=== PATIENT | female | born 1985 | race Caucasian/White ===

== ENCOUNTER 2016-06-29 06:57 | Observation (INO) | payer MEDICAID, OTHER ==
[2016-06-29] MEDS ORDERED: ONDANSETRON 4 MG/2 ML VIAL IVP ONE (07:25)
[2016-06-29] MEDS ORDERED: LORazepam 2 MG/ML INJ IVP ONE (07:26)
[2016-06-29] MEDS ORDERED: NS 1,000 ML IV ONE ×3 (07:26→10:25)
[2016-06-29 07:30] LABS: % IMMATURE GRANULYOCYTES 0.5 % (0.0-1.1); ABSOLUTE IMMATURE GRANULOCYTES 0.05 10^3/uL (0.00-0.10); ADD DIFF? NO; ADD MORPH? NO; ADD SCAN? NO; ATYPICAL LYMPHOCYTE FLAG 0 (0-99); FRAGMENT RBC FLAG 0 (0-99); HEMATOCRIT 44.8 % (38.0-47.0); HEMOGLOBIN 15.7 g/dL (12.6-16.3); LEFT SHIFT FLG 0 (0-99); LIPEMIA HEMOLYSIS FLAG 90 (0-99); MEAN CELL HEMOGLOBIN 31.4 pg (27.9-34.1); MEAN CELL VOLUME 89.6 fL (81.5-99.8); MEAN PLATELET VOLUME 11.5 fL (8.7-11.7); PLATELET CLUMPS FLAG 10 (0-99); PLATELET COUNT 179 10^3/uL (150-400); RED CELL DISTRIBUTION WIDTH 12.7 % (11.5-15.2)
[2016-06-29] MEDS ORDERED: PROMETHAZINE HCL 25 MG/ML INJ IVP ONE (07:35)
[2016-06-29] MEDS ORDERED: PROMETHAZINE HCL 25 MG/ML INJ ONE (07:36)
--- NOTE | 2016-06-29 07:41 | EDPHY ---
HPI/HX/ROS/PE/MDM Narrative: Chief complaint: Nausea vomiting and diarrhea HPI: 31-year-old female presenting complaining of 2 days of nausea vomiting and diarrhea. Patient believes that this set off by sinus infection. She has congestion in her sinuses and is having a lot of nasal discharge. This is causing her to feel nauseated and vomiting. She has a medical history of irritable bowel disease and anxiety. She often takes Zofran at home and is prescribed mirtazapine at night by her primary care physician for her sleep in her symptoms. Patient states that these have not been working for her. She has had multiple presentations to the emergency department for similar symptoms in the past. Denies any fevers or chills. No chest pain shortness of breath. Some crampy abdominal pain which is not unusual for her. She has a history of appendicitis in the past, status post appendectomy. She states that she has an allergy to amoxicillin and however paranoid all which causes her to feel very jittery. ROS: 10 point Review of Systems is negative except as noted in the HPI. Physical exam: Gen: Awake, Alert, No Distress HEENT: Nose: no rhinorrhea Eyes: PERRLA, EOMI Mouth: Dry mucosa Neck: Supple, no JVD Chest: nontender, lungs clear to auscultation Heart: S1, S2 normal, no murmur Abd: Soft, mild generalized tenderness, no focal findings,, no guarding, nonsurgical abdomen Back: no CVA tenderness, no midline tenderness Ext: no edema, non-tender Skin: no rash Neuro: CN II-XII intact, Sensation grossly intact, Strength 5/5 in bilateral upper and lower extremities ED Course: Patient is continuing to complain of nausea and dry retching after she has received 2 L of fluid, 4 mg of Zofran, 25 mg of Phenergan, 1 mg of Ativan, 2.5 mg of Haldol, 25 mg of Benadryl. She is ambulating to and from the bathroom without difficulty. She has not actually been seen to be vomiting here but has been dry retching. I have discussed with Dr. Muñoz, hospitalist. Will plan to admit to the to the [facility] for further hydration and care. - Data Points Laboratory Results: Laboratory Results 06/29/16 07:18 06/29/16 07:18 06/29/16 07:18 WBC 10.93 H 10^3/uL (3.80-9.50) RBC 5.00 10^6/uL (4.18-5.33) Hgb 15.7 g/dL (12.6-16.3) Hct 44.8 % (38.0-47.0) MCV 89.6 fL (81.5-99.8) MCH 31.4 pg (27.9-34.1) MCHC 35.0 g/dL (32.4-36.7) RDW 12.7 % (11.5-15.2) Plt Count 179 10^3/uL (150-400) MPV 11.5 fL (8.7-11.7) Neut % (Auto) 91.5 H % (39.3-74.2) Lymph % (Auto) 4.1 L % (15.0-45.0) [place] % (Auto) 3.6 L % (4.5-13.0) Eos % (Auto) 0.0 L % (0.6-7.6) Baso % (Auto) 0.3 % (0.3-1.7) Nucleat RBC Rel Count 0.0 % (0.0-0.2) Absolute Neuts (auto) 10.01 H 10^3/uL (1.70-6.50) Absolute Lymphs (auto) 0.45 L 10^3/uL (1.00-3.00) Absolute Monos (auto) 0.39 10^3/uL (0.30-0.80) Absolute Eos (auto) 0.00 L 10^3/uL (0.03-0.40) Absolute Basos (auto) 0.03 10^3/uL (0.02-0.10) Absolute Nucleated RBC 0.00 10^3/uL (0-0.01) Immature Gran % 0.5 % (0.0-1.1) Immature Gran # 0.05 10^3/uL (0.00-0.10) Sodium 139 mEq/L (134-144) Potassium 3.8 mEq/L (3.5-5.2) Chloride 107 mEq/L (97-110) Carbon Dioxide 16 L mEq/l (22-31) Anion Gap 16 mEq/L (8-16) BUN 7 mg/dL (7-23) Creatinine 0.8 mg/dL (0.6-1.0) Estimated GFR > 60 Glucose 178 H mg/dL (70-100) Calcium 9.7 mg/dL (8.5-10.4) Beta HCG, Qual NEGATIVE Medications Given: Discontinued Medications Diphenhydramine HCl (Benadryl Injection) 25 mg IVP EDNOW ONE Stop: 06/29/16 08:37 Last Admin: 06/29/16 08:42 Dose: 25 mg Haloperidol Lactate (Haldol Injection) 2.5 mg IVP EDNOW ONE Stop: 06/29/16 08:37 Last Admin: 06/29/16 08:42 Dose: 2.5 mg Sodium Chloride (Ns) 1,000 mls @ 0 mls/hr IV EDNOW ONE PRN Reason: Wide Open Stop: 06/29/16 07:27 Last Admin: 06/29/16 07:35 Dose: 1,000 mls Sodium Chloride (Ns) 1,000 mls @ 0 mls/hr IV EDNOW ONE PRN Reason: Wide Open Stop: 06/29/16 09:29 Last Admin: 06/29/16 09:30 Dose: 1,000 mls Sodium Chloride (Ns) 1,000 mls @ 0 mls/hr IV EDNOW ONE PRN Reason: Wide Open Stop: 06/29/16 10:26 Last Admin: 06/29/16 10:25 Dose: 1,000 mls Lorazepam (Ativan Injection) 1 mg IVP EDNOW ONE Stop: 06/29/16 07:27 Last Admin: 06/29/16 07:40 Dose: 1 mg Ondansetron HCl (Zofran) 4 mg IVP EDNOW ONE Stop: 06/29/16 07:26 Last Admin: 06/29/16 07:40 Dose: 4 mg Promethazine HCl (Phenergan Injection) 25 mg IVP EDNOW ONE Stop: 06/29/16 07:36 Last Admin: 06/29/16 07:40 Dose: 25 mg General Time Seen by Provider: 06/29/16 07:27 Initial Vital Signs: Initial Vital Signs Temperature (C) 36.3 C 06/29/16 07:04 Heart Rate 96 06/29/16 07:04 Respiratory Rate 16 06/29/16 07:04 Blood Pressure 112/91 H 06/29/16 07:04 O2 Sat (%) 98 06/29/16 07:04 O2 Delivery Mode Room Air Allergies/Adverse Reactions: amoxicillin Allergy (Verified 06/03/16 03:48) haloperidol [From Haldol] Allergy (Verified 06/03/16 03:48) haloperidol lactate [From Haldol] Allergy (Verified 06/03/16 03:48) Home Medications: Medication Instructions Recorded Diazepam [Valium 5 MG (*)] 5 mg PO BID PRN 05/09/16 Ibuprofen [Motrin (*)] 200 mg PO DAILY PRN 05/09/16 Acetaminophen [Tylenol 325mg (*)] 650 mg PO Q4HRS PRN #0 tab 05/12/16 Dicyclomine [Bentyl 20 MG (*)] 20 mg PO QID PRN #30 tab 05/12/16 Loperamide HCl [Imodium 2 mg (*)] 2 - 4 mg PO BID PRN #30 cap 05/12/16 Omeprazole Magnesium [Prilosec Otc] 20 mg PO DAILY #30 tablet. 05/12/16 Ondansetron [Zofran Odt] 8 mg PO Q4 PRN #40 tab.rapdis 05/12/16 Promethazine HCl [Phenergan 12.5mg 12.5 - 25 mg PO Q6 PRN #40 tablet 05/12/16 tab] Promethazine HCl [Phenergan 25mg 12.5 - 25 mg PO Q6HRS PRN #0 tab 05/12/16 (*)] Psyllium Seed (with Dextrose) 369 gm PO DAILY PRN #30 dose 05/12/16 [Fiber Powder] Promethazine HCl [Phenergan 25mg 25 mg PO Q8 #6 tab 06/03/16 (*)] Departure - Departure Disposition: [facility] Acute Clinical Impression: Vomiting and diarrhea Condition: Fair Referrals: Jackie Muro [Primary Care Provider] - As per Instructions
[2016-06-29 07:54] LABS: ANION GAP 16 mEq/L (8-16); CALCIUM 9.7 mg/dL (8.5-10.4); CARBON DIOXIDE 16 mEq/l (22-31); CHLORIDE 107 mEq/L (97-110); CREATININE 0.8 mg/dL (0.6-1.0); GLOMERULAR FILTRATION RATE > 60; GLUCOSE 178 mg/dL (70-100); POTASSIUM 3.8 mEq/L (3.5-5.2); SODIUM 139 mEq/L (134-144)
[2016-06-29] MEDS ORDERED: HALOPERIDOL LACT 5 MG/ML INJ IVP ONE (08:36)
[2016-06-29] MEDS ORDERED: ACETAMINOPHEN 500 MG TAB PO PRN (12:37)
[2016-06-29] MEDS ORDERED: PROMETHAZINE HCL 25 MG TAB PO PRN (12:37)
[2016-06-29] MEDS ORDERED: HYDROCODONE/APAP 5/325 TAB PO PRN (12:37)
[2016-06-29] MEDS ORDERED: ONDANSETRON 4 MG/2 ML VIAL IVP PRN (12:37)
[2016-06-29] MEDS: NS W/ 20 KCl/L 1,000 ML IV SCH (13:36)
[2016-06-29] MEDS: LORazepam 0.5 MG TAB PO PRN (13:53)
[2016-06-29] MEDS: PANTOPRAZOLE SODIUM 40 MG in NS 100 ML IV SCH (13:53)
[2016-06-29] MEDS ORDERED: MAGNESIUM SULF 2 GM/WATER 50 ML IV ONE ×2 (14:19→18:30)
--- NOTE | 2016-06-29 14:38 | PDGENHP ---
History and Physical - Chief Complaint NAUSEA/VOMITING/DIARRHEA - History of Present Illness 31-year-old female presenting complaining of 2 days of nausea vomiting and diarrhea. Patient believes that this set off by sinus infection. She has congestion in her sinuses and is having a lot of nasal discharge. This is causing her to feel nauseated and vomiting. She has a medical history of IBS and anxiety. She often takes Zofran at home and is prescribed mirtazapine at night by her primary care physician for her sleep in her symptoms. Patient states that these have not been working for her. Denies any fevers or chills. No chest pain shortness of breath. Some crampy abdominal pain which is not unusual for her. She has a history of appendicitis in the past, status post appendectomy. ED: she was given IVF and antiemetics. ROS: 10 point Review of Systems is negative except as noted in the HPI. PMHX: Anxiety, IBS, nausea, insomnia PSHx: appendectomy SocHx: + tobacco FmHx: unknown Meds/All: see med rec O: VSS Physical exam: Gen: Awake, Alert, No Distress HEENT: Nose: no rhinorrhea Eyes: PERRLA, EOMI Mouth: Dry mucosa Sinuses: TTP bilaterally along frontal sinuses. No maxillary involvement Neck: Supple, no JVD Chest: nontender, lungs clear to auscultation Heart: S1, S2 normal, no murmur Abd: Soft, mild generalized tenderness, no focal findings,, no guarding, nonsurgical abdomen Back: no CVA tenderness, no midline tenderness Ext: no edema, non-tender Skin: no rash Neuro: CN II-XII intact, Sensation grossly intact, Strength 5/5 in bilateral upper and lower extremities History Information - Allergies/Home Medication List Allergies/Adverse Reactions: amoxicillin Allergy (Unknown, Verified 06/29/16 11:25) Other-Enter Comments haloperidol [From Haldol] Allergy (Unknown, Verified 06/29/16 11:25) Other-Enter Comments haloperidol lactate [From Haldol] Allergy (Unknown, Verified 06/29/16 11:25) Other-Enter Comments Home Medications: Ibuprofen [Motrin (*)] 200 mg PO DAILY PRN 05/09/16 [Last Taken Unknown] Mirtazapine [Remeron soltab 15 mg (*)] 15 mg PO HS 06/29/16 [Last Taken 06/28/16 ] Naproxen Sodium [Aleve 220 MG (*)] 220 mg PO BID PRN 06/29/16 [Last Taken ] Ondansetron HCl [Zofran] 8 mg PO Q8 PRN 06/29/16 [Last Taken Unknown] Promethazine HCl [Phenergan 12.5mg tab] 12.5 - 25 mg PO Q6 PRN 06/29/16 [Last Taken Unknown] I have personally reviewed and updated: medical history, social history - Social History Smoking Status: Never smoked Physical Exam Temp Pulse Resp BP Pulse Ox 36.6 C 103 H 14 134/98 H 98 06/29/16 14:13 06/29/16 14:13 06/29/16 14:13 06/29/16 14:13 06/29/16 14:13 Lab Data & Imaging Review 06/29/16 07:18 06/29/16 07:18 WBC 10.93 10^3/uL (3.80-9.50) H 06/29/16 07:18 RBC 5.00 10^6/uL (4.18-5.33) 06/29/16 07:18 Hgb 15.7 g/dL (12.6-16.3) 06/29/16 07:18 Hct 44.8 % (38.0-47.0) 06/29/16 07:18 MCV 89.6 fL (81.5-99.8) 06/29/16 07:18 MCH 31.4 pg (27.9-34.1) 06/29/16 07:18 MCHC 35.0 g/dL (32.4-36.7) 06/29/16 07:18 RDW 12.7 % (11.5-15.2) 06/29/16 07:18 Plt Count 179 10^3/uL (150-400) 06/29/16 07:18 MPV 11.5 fL (8.7-11.7) 06/29/16 07:18 Neut % (Auto) 91.5 % (39.3-74.2) H 06/29/16 07:18 Lymph % (Auto) 4.1 % (15.0-45.0) L 06/29/16 07:18 [place] % (Auto) 3.6 % (4.5-13.0) L 06/29/16 07:18 Eos % (Auto) 0.0 % (0.6-7.6) L 06/29/16 07:18 Baso % (Auto) 0.3 % (0.3-1.7) 06/29/16 07:18 Nucleat RBC Rel Count 0.0 % (0.0-0.2) 06/29/16 07:18 Absolute Neuts (auto) 10.01 10^3/uL (1.70-6.50) H 06/29/16 07:18 Absolute Lymphs (auto) 0.45 10^3/uL (1.00-3.00) L 06/29/16 07:18 Absolute Monos (auto) 0.39 10^3/uL (0.30-0.80) 06/29/16 07:18 Absolute Eos (auto) 0.00 10^3/uL (0.03-0.40) L 06/29/16 07:18 Absolute Basos (auto) 0.03 10^3/uL (0.02-0.10) 06/29/16 07:18 Absolute Nucleated RBC 0.00 10^3/uL (0-0.01) 06/29/16 07:18 Immature Gran % 0.5 % (0.0-1.1) 06/29/16 07:18 Immature Gran # 0.05 10^3/uL (0.00-0.10) 06/29/16 07:18 Sodium 139 mEq/L (134-144) 06/29/16 07:18 Potassium 3.8 mEq/L (3.5-5.2) 06/29/16 07:18 Chloride 107 mEq/L (97-110) 06/29/16 07:18 Carbon Dioxide 16 mEq/l (22-31) L 06/29/16 07:18 Anion Gap 16 mEq/L (8-16) 06/29/16 07:18 BUN 7 mg/dL (7-23) 06/29/16 07:18 Creatinine 0.8 mg/dL (0.6-1.0) 06/29/16 07:18 Estimated GFR > 60 06/29/16 07:18 Glucose 178 mg/dL (70-100) H 06/29/16 07:18 Calcium 9.7 mg/dL (8.5-10.4) 06/29/16 07:18 Magnesium 1.5 mg/dL (1.6-2.3) L 06/29/16 07:18 Beta HCG, Qual NEGATIVE 06/29/16 07:18 Assessment & Plan Assessment: Vomiting and diarrhea (Acute) Plan: #N/V/D IN SETTING OF IBS AND CHRONIC NAUSEA #DEHYDRATION #SINUSITIS, LIKELY VIRAL. #HYPOMAGNESEMIA PLAN -OBSERVATION -IVF, ANTIEMETICS, PPI -CLD, ADAT -REPLACE MG -NO ABX FOR THE SINUSITIS AT THIS TIME -SCD'S -FULL CODE TOTAL CARE TIME IS 50 MINUTES
[2016-06-29] MEDS: ONDANSETRON DISINTEGRATING 4 MG TAB PO PRN ×2 (14:58→21:13)
[2016-06-29] MEDS ORDERED: MIRTAZAPINE 15 MG ODTAB PO SCH (21:00)
[2016-06-30] MEDS: LORazepam 0.5 MG TAB PO PRN (01:38)
[2016-06-30] MEDS ORDERED: guaiFENesin 600 MG TAB.ER PO PRN (04:02)
[2016-06-30] MEDS: NS W/ 20 KCl/L 1,000 ML IV SCH (04:10)
[2016-06-30 05:23] LABS: % IMMATURE GRANULYOCYTES 0.4 % (0.0-1.1); ABSOLUTE IMMATURE GRANULOCYTES 0.07 10^3/uL (0.00-0.10); ADD DIFF? NO; ADD MORPH? NO; ADD SCAN? NO; ATYPICAL LYMPHOCYTE FLAG 0 (0-99); FRAGMENT RBC FLAG 0 (0-99); HEMATOCRIT 39.8 % (38.0-47.0); HEMOGLOBIN 13.5 g/dL (12.6-16.3); LEFT SHIFT FLG 0 (0-99); LIPEMIA HEMOLYSIS FLAG 90 (0-99); MEAN CELL HEMOGLOBIN 31.5 pg (27.9-34.1); MEAN CELL HEMOGLOBIN CONCENTR. 33.9 g/dL (32.4-36.7); MEAN CELL VOLUME 92.8 fL (81.5-99.8); MEAN PLATELET VOLUME 11.8 fL (8.7-11.7); PLATELET CLUMPS FLAG 20 (0-99); PLATELET COUNT 165 10^3/uL (150-400); RED BLOOD CELL COUNT 4.29 10^6/uL (4.18-5.33); RED CELL DISTRIBUTION WIDTH 13.2 % (11.5-15.2)
[2016-06-30 05:47] LABS: ANION GAP 12 mEq/L (8-16); CALCIUM 8.8 mg/dL (8.5-10.4); CARBON DIOXIDE 19 mEq/l (22-31); CHLORIDE 110 mEq/L (97-110); CREATININE 0.7 mg/dL (0.6-1.0); GLOMERULAR FILTRATION RATE > 60; GLUCOSE 98 mg/dL (70-100); POTASSIUM 3.8 mEq/L (3.5-5.2); SODIUM 141 mEq/L (134-144)
[2016-06-30] MEDS ORDERED: guaiFENesin 600 MG TAB.ER PO SCH (09:00)
[2016-06-30] MEDS: PANTOPRAZOLE SODIUM 40 MG in NS 100 ML IV SCH (09:37)
[2016-06-30 11:04] VITALS: BP 127/87; PULSE 82; RESP 16; TEMP 97.9; O2SAT 99
--- NOTE | 2016-06-30 11:11 | PDDCSUM ---
Discharge Summary Discharge Summary: HPI/HOSPITAL COURSE 31 YO FEMALE ADMITTED FOR N/V/D/ABD PAIN. SHE HAS A HX OF IBS. SHE WAS FOUND TO BE DEHYDRATED. SHE WAS ADMITTED OVERNIGHT AND PROVIDED IVF, ANTIEMETICS, PPI. HAS DONE WELL. NOW FEELS MUCH BETTER AND IS ASKING FOR DISCHARGE. ALSO HAS A VIRAL SINUSITIS. HAS REMAINED AFEBRILE. FEELS BETTER FROM THIS PERSPECTIVE WELL. SHE DID HAVE MILD LEUKOCYTOSIS ON THE DAY OF DISCHARGE BUT GIVEN THAT SHE IS AFEBRILE, FEELS BETTER, AND SINUSES ARE NOT TENDER, WILL HOLD ANTIBIOTIC DDX: #N/V/D IN SETTING OF IBS AND CHRONIC NAUSEA #DEHYDRATION #SINUSITIS, LIKELY VIRAL. #HYPOMAGNESEMIA, REPLACED DX MEDS: SEE MED REC. NO NEW MEDS STARTED DX EXAM NAD AAOX3 RRR CTAB S/NT/ND NO EDEMA F/U: WILL F/U WITH PCP NEXT WEEK. IF SINUSITIS GETS WORSE OR IF SHE DEVELOP FEVERS, SHE WILL NEED TO F/U SOONER TOTAL CARE TIME IS 35 MINUTES SPENT ON DISCHARGE
== END 2016-06-30 12:52 | disposition home or self-care (01) ==
LOC: F3E 13:16
PROVIDERS: ADMIT Family Medicine; ATTEND Family Medicine
DX: E86.0 Dehydration (principal); R11.0 Nausea; K58.9 Irritable bowel syndrome, unspecified; J32.9 Chronic sinusitis, unspecified; E83.42 Hypomagnesemia; F41.9 Anxiety disorder, unspecified
CPT/HCPCS: 96361; 96374; 96375; 99285; G0378; J1200; J2405; J2550

== ENCOUNTER 2016-12-06 06:57 | Observation (INO) | payer OTHER ==
[2016-12-06] MEDS ORDERED: ONDANSETRON DISINTEGRATING 4 MG TAB ONE (07:14)
[2016-12-06] MEDS ORDERED: NS 1,000 ML IV ONE ×2 (07:29→09:30)
[2016-12-06] MEDS ORDERED: PROMETHAZINE HCL 25 MG/ML INJ IVP ONE ×2 (07:29→08:30)
--- NOTE | 2016-12-06 07:40 | EDPHY ---
H & P Stated Complaint: vomiting x 24 hours Time Seen by Provider: 12/06/16 07:05 HPI/ROS: CHIEF COMPLAINT: Vomiting and diarrhea HISTORY OF PRESENT ILLNESS: This is a 31-year-old female with several emergency department visits and hospitalizations for intractable vomiting. She presents today stating that she has been vomiting for the past 2 days. She has also had diarrhea. She denies fever. She has lower abdominal cramping that she thinks is related to her current menstrual period. She states that she has a history of both irritable bowel syndrome and inflammatory bowel syndrome, not confirmed by testing as best I can determine. She is not on any medications for either problem. She also has a history of anxiety and reports that she has had problems with benzodiazepine addiction. She is not currently taking any benzodiazepines. She thinks that this current bout of vomiting is related to sinus congestion and nasal drainage that she has been experiencing. She smokes marijuana daily; she tells me that she smokes a small quantity only. REVIEW OF SYSTEMS: A ten point review of systems was performed and is negative with the exception of the items mentioned in the HPI. - Personal History LMP (Females 10-55): Now Current Tetanus/Diphtheria Vaccine: Yes - Medical/Surgical History Hx Asthma: No Hx Chronic Respiratory Disease: No Hx Diabetes: No Hx Cardiac Disease: No Hx Renal Disease: No Hx Cirrhosis: No Hx Alcoholism: No Hx HIV/AIDS: No Hx Splenectomy or Spleen Trauma: No Other PMH: PSHx: appy. PMHx: anxiety, stomach ulcers, irritable bowel syndrome - Social History Smoking Status: Never smoked Drug Use: Marijuana Additional Social History: She is currently unemployed. She does not have a primary care physician. - Physical Exam Exam: General Appearance: Alert. Vital signs reviewed. Retching, hyperventilating. Blood pressure 134/85. Eyes: Pupils equal and round, no conjunctival injection, no discharge. Anicteric. ENT, Mouth: Mucous membranes are moist, no oropharyngeal erythema or edema. Neck: No lymphadenopathy, supple. Respiratory: Lungs are clear to auscultation; no wheezes, rales, or rhonchi. Respiratory rate mid 20s. Cardiovascular: Regular rate and rhythm; no murmur, rub, or gallop. Gastrointestinal: Abdomen is soft and nontender, no masses or organomegaly, bowel sounds normal. Skin: Warm and dry, no rashes on exposed skin, normal color. Back: Nontender to palpation over the thoracolumbar spine. No CVAT. Extremities: No lower extremity edema, no calf tenderness or swelling. Neurological: Alert and oriented. Moving all four extremities easily and equally. Psychiatric: Anxious affect. Constitutional: Initial Vital Signs Temperature (C) 36.7 C 12/06/16 07:18 Heart Rate 88 12/06/16 07:18 Respiratory Rate 26 H 12/06/16 07:18 Blood Pressure 134/85 H 12/06/16 07:18 O2 Sat (%) 99 12/06/16 07:18 O2 Delivery Mode Room Air Allergies/Adverse Reactions: amoxicillin Allergy (Unknown, Verified 12/06/16 07:11) Other-Enter Comments haloperidol [From Haldol] Allergy (Unknown, Verified 12/06/16 07:11) Other-Enter Comments haloperidol lactate [From Haldol] Allergy (Unknown, Verified 12/06/16 07:11) Other-Enter Comments Home Medications: Medication Instructions Recorded Ondansetron 12/06/16 Medical Decision Making ED Course/Re-evaluation: 31-year-old female with several visits for persistent vomiting. She has been admitted 4 times in the past for this problem. The Specter of cyclic vomiting has been raised but she does not feel that that is the etiology of her vomiting. She does smoke marijuana daily. In the past she has used benzodiazepines but has had a problem with addiction. She is not currently taking any benzodiazepines. She has been evaluated every 15 minutes during the 1st hour of her stay. She initially received normal saline IV, 12.5 mg IV Phenergan. She has continued with retching. She was given 1 mg of Ativan, for vomiting and anxiety. She has had persistent hyperventilation and has developed carpopedal spasm. She is being given benadryl 12.5 mg IV. She has had persistent retching and vomiting during her stay in the emergency department. Vomitus at 9:45 a.m. has some blood streaking. She will be given a dose Pepcid IV. Because of her intractable vomiting she is being admitted to observation at [facility]. Dr. Robles is the accepting physician. It is my impression that this is cyclic vomiting. Differential Diagnosis: Considered a differential diagnosis that includes but is not limited to gastroenteritis, gastritis, pancreatitis, cholecystitis, and cyclic vomiting. - Data Points Laboratory Results: Laboratory Results 12/06/16 07:30 12/06/16 07:30 12/06/16 12/06/16 12/06/16 07:30 07:30 07:30 WBC 9.14 10^3/uL 10^3/uL (3.80-9.50) RBC 4.87 10^6/uL 10^6/uL (4.18-5.33) Hgb 15.3 g/dL g/dL (12.6-16.3) Hct 43.4 % % (38.0-47.0) MCV 89.1 fL fL (81.5-99.8) MCH 31.4 pg pg (27.9-34.1) MCHC 35.3 g/dL g/dL (32.4-36.7) RDW 12.5 % % (11.5-15.2) Plt Count 280 10^3/uL 10^3/uL (150-400) MPV 12.2 fL H fL (8.7-11.7) Neut % (Auto) 58.3 % % (39.3-74.2) Lymph % (Auto) 32.2 % % (15.0-45.0) [place] % (Auto) 6.5 % % (4.5-13.0) Eos % (Auto) 1.9 % % (0.6-7.6) Baso % (Auto) 0.9 % % (0.3-1.7) Nucleat RBC Rel Count 0.0 % % (0.0-0.2) Absolute Neuts (auto) 5.34 10^3/uL 10^3/uL (1.70-6.50) Absolute Lymphs (auto) 2.94 10^3/uL 10^3/uL (1.00-3.00) Absolute Monos (auto) 0.59 10^3/uL 10^3/uL (0.30-0.80) Absolute Eos (auto) 0.17 10^3/uL 10^3/uL (0.03-0.40) Absolute Basos (auto) 0.08 10^3/uL 10^3/uL (0.02-0.10) Absolute Nucleated RBC 0.00 10^3/uL 10^3/uL (0-0.01) Immature Gran % 0.2 % % (0.0-1.1) Immature Gran # 0.02 10^3/uL 10^3/uL (0.00-0.10) Sodium 138 mEq/L mEq/L (134-144) Potassium 3.9 mEq/L mEq/L (3.5-5.2) Chloride 107 mEq/L mEq/L (97-110) Carbon Dioxide 16 mEq/l L mEq/l (22-31) Anion Gap 15 mEq/L mEq/L (8-16) BUN 13 mg/dL mg/dL (7-23) Creatinine 0.9 mg/dL mg/dL (0.6-1.0) Estimated GFR > 60 Glucose 158 mg/dL H mg/dL (70-100) Calcium 9.7 mg/dL mg/dL (8.5-10.4) Beta HCG, Qual NEGATIVE Medications Given: Discontinued Medications Diphenhydramine HCl (Benadryl Injection) 1,205 mg IVP EDNOW ONE Stop: 12/06/16 08:13 Last Admin: 12/06/16 08:45 Dose: Not Given Diphenhydramine HCl (Benadryl Injection) 12.5 mg IVP EDNOW ONE Stop: 12/06/16 08:31 Last Admin: 12/06/16 08:10 Dose: 12.5 mg Famotidine (Pepcid) 20 mg IVP EDNOW ONE Stop: 12/06/16 09:43 Last Admin: 12/06/16 09:48 Dose: 20 mg Sodium Chloride (Ns) 1,000 mls @ 0 mls/hr IV ONCE ONE; Wide Open PRN Reason: Protocol Stop: 12/06/16 07:30 Last Admin: 12/06/16 07:40 Dose: 1,000 mls Sodium Chloride (Ns) 1,000 mls @ 0 mls/hr IV ONCE ONE; Wide Open PRN Reason: Protocol Stop: 12/06/16 09:31 Last Admin: 12/06/16 09:20 Dose: 1,000 mls Lorazepam (Ativan Injection) 1 mg IVP EDNOW ONE Stop: 12/06/16 07:44 Last Admin: 12/06/16 08:00 Dose: 1 mg Promethazine HCl (Phenergan) 12.5 mg IVP EDNOW ONE Stop: 12/06/16 07:30 Last Admin: 12/06/16 07:40 Dose: 12.5 mg Promethazine HCl (Phenergan) 12.5 mg IVP ONCE ONE Stop: 12/06/16 08:31 Last Admin: 12/06/16 08:44 Dose: 12.5 mg Departure - Departure Disposition: [facility] Acute Clinical Impression: Vomiting Qualifiers: Vomiting type: cyclical vomiting Vomiting Intractability: intractable Nausea presence: with nausea Qualified Code(s): G43.A1 - Cyclical vomiting, intractable
[2016-12-06] MEDS ORDERED: LORazepam 2 MG/ML INJ IVP ONE (07:43)
[2016-12-06 08:20] LABS: % IMMATURE GRANULYOCYTES 0.2 % (0.0-1.1); ABSOLUTE IMMATURE GRANULOCYTES 0.02 10^3/uL (0.00-0.10); ADD DIFF? NO; ADD MORPH? NO; ADD SCAN? NO; ATYPICAL LYMPHOCYTE FLAG 30 (0-99); FRAGMENT RBC FLAG 0 (0-99); HEMATOCRIT 43.4 % (38.0-47.0); HEMOGLOBIN 15.3 g/dL (12.6-16.3); LEFT SHIFT FLG 0 (0-99); LIPEMIA HEMOLYSIS FLAG 90 (0-99); MEAN CELL HEMOGLOBIN 31.4 pg (27.9-34.1); MEAN CELL HEMOGLOBIN CONCENTR. 35.3 g/dL (32.4-36.7); MEAN CELL VOLUME 89.1 fL (81.5-99.8); MEAN PLATELET VOLUME 12.2 fL (8.7-11.7); PLATELET CLUMPS FLAG 0 (0-99); PLATELET COUNT 280 10^3/uL (150-400); RED BLOOD CELL COUNT 4.87 10^6/uL (4.18-5.33); RED CELL DISTRIBUTION WIDTH 12.5 % (11.5-15.2)
[2016-12-06 08:26] LABS: ANION GAP 15 mEq/L (8-16); CALCIUM 9.7 mg/dL (8.5-10.4); CARBON DIOXIDE 16 mEq/l (22-31); CHLORIDE 107 mEq/L (97-110); CREATININE 0.9 mg/dL (0.6-1.0); GLOMERULAR FILTRATION RATE > 60; GLUCOSE 158 mg/dL (70-100); POTASSIUM 3.9 mEq/L (3.5-5.2); SODIUM 138 mEq/L (134-144)
[2016-12-06] MEDS ORDERED: FAMOTIDINE 20 MG/2 ML SDV IVP ONE (09:42)
[2016-12-06] MEDS ORDERED: ACETAMINOPHEN 325 MG TAB PO PRN (12:24)
[2016-12-06] MEDS ORDERED: ONDANSETRON DISINTEGRATING 4 MG TAB PO PRN (12:24)
[2016-12-06] MEDS: ONDANSETRON 4 MG/2 ML VIAL IVP PRN ×2 (13:05→17:12)
[2016-12-06] MEDS: KETOROLAC 15 MG/1 ML SDV IVP SCH ×2 (13:06→18:31)
--- NOTE | 2016-12-06 14:47 | GHP ---
[f rep st] HISTORY AND PHYSICAL DATE OF ADMISSION: 12/06/2016 CHIEF COMPLAINT: Vomiting. HISTORY OF PRESENT ILLNESS: Ms Weiner is a 31-year-old female, well known to our service with multi ple admissions secondary to complaints of nausea and vomiting. She reports that this morning she st arted having severe vomiting and has not been able to keep any oral intake down for the past 2 days. She denies any fevers. She denies any chest pain, dyspnea or shortness of breath. She does state that she has mild abdominal cramping that she feels is related to her menstrual cycle. She feels t hat she also has a history of anxiety disorder and has had had problems with benzodiazepine addictio n in the past. She confirms that she smokes marijuana on a daily basis. She has no other physical complaints. REVIEW OF SYSTEMS: Comprehensive 10-point review of systems is negative other than noted in the HPI . PAST MEDICAL HISTORY: 1. Benzodiazepine addiction. 2. Cyclic vomiting. 3. Anxiety. PAST SURGICAL HISTORY: None. SOCIAL HISTORY: The patient is unemployed. She lives independently. She uses marijuana on a daily basis. She denies any alcohol or tobacco use. She denies any other illicit drugs at this time. PHYSICAL EXAM: GENERAL: The patient is alert. VITAL SIGNS: Afebrile at 36.7, pulse is 88, respir atory rate 26, blood pressure is 134/85, she is saturating 99% on room air. HEENT: Normocephalic, atraumatic. Mucosal membranes are moist. Pupils equal, round, reactive to light. NECK: Supple. RESPIRATORY: Lungs are clear to auscultation bilaterally. No rhonchi or wheezes noted. CARDIOVASC ULAR: Regular rate and rhythm. No gallop or murmur appreciated. GASTROINTESTINAL: Bowel sounds a re positive, soft and nontender. There is no guarding or rigidity noted. SKIN: Warm and dry with no rashes or lesions appreciated. EXTREMITIES: Within normal limits. There is no clubbing or cyan osis noted. NEUROLOGIC: Patient is focally intact. ALLERGIES: Amoxicillin, Haldol. HOME MEDICATIONS: None. FAMILY HISTORY: Reviewed and not pertinent. LABORATORY EVALUATION: Panel and CBC normal limits. ASSESSMENT AND PLAN: A 31-year-old female with multiple previous admissions secondary to cyclic vom iting. The patient will be admitted to the hospital under observation status. We will continue to provide IV hydration and supportive management. I have informed her that we will not provide her an y IV narcotics nor benzodiazepines as she does have a history of benzodiazepine abuse in the past. I have offered her Zofran as an antiemetic and IV fluid. I have also provided her with Toradol for her menstrual cramping. I have educated the patient that this is likely secondary to her consumptio n of THC; however, she is not interested in hearing this information at this time. She has been theresa luated in the past by Aline Elizondo. I have also suggested to the patient we will attempt to get a psy chiatry consult during this hospitalization for her underlying anxiety disorder. She has been infor med in the past and educated that she needs to obtain a primary care physician, as well as a psychia trist in the outpatient setting, of which she has not accomplished. We will continue supportive man agement. I anticipate the patient will be discharged in less than [address] Robles will assum e the patient's care on 12/07/2016. Further action will be taken as needed during the patient's hos pitalization. /[id number]/MODL
[2016-12-06] MEDS ORDERED: KETOROLAC 15 MG/1 ML SDV IVP SCH (18:00)
[2016-12-06] MEDS: NS 1,000 ML IV SCH (20:54)
[2016-12-06] MEDS ORDERED: PSEUDOEPHEDRINE HCL 30 MG TAB PO PRN (21:36)
[2016-12-07] MEDS: KETOROLAC 15 MG/1 ML SDV IVP SCH ×2 (00:15→05:06)
[2016-12-07] MEDS: NS 1,000 ML IV SCH (04:55)
[2016-12-07 05:18] VITALS: O2SAT 97
[2016-12-07 08:39] VITALS: BP 113/72; PULSE 75; RESP 18; TEMP 98.2
--- NOTE | 2016-12-07 12:20 | GDS ---
[f rep st] DISCHARGE SUMMARY DISCHARGE DIAGNOSIS: Include: 1. Recurrent cyclic nausea and vomiting. 2. Cannabis abuse. 3. Benzodiazepine addiction. 4. Anxiety. HISTORY OF PRESENT ILLNESS: A 31-year-old female with multiple hospitalizations recently for cyclic vomiting. For details of patient's initial presentation, please see the History and Physical dated 12/06/2016. CONSULTATIVE SERVICES: None. PROCEDURES: None. HOSPITAL COURSE: By issue: 1. Recurrent cyclic vomiting. Endorses symptoms consistent with possible irritable bowel syndrome. Has had extensive outpatient workup by Gastroenterology with no specific gastroenterologic patholo gy identified. The patient has been educated about the association between cannabis and cyclic vomi ting and based on my discussion refuses to accept the idea that this toxin may be contributing to he r recurrent presentations. Based on our discussions I do not believe the patient intends to stop ca nnabis use going forward, although it has been recommended by multiple providers. The patient is to lerating p.o. in the morning of disposition. She will be discharged home with her home dosing of Zo robert. 2. Benzodiazepine addiction. The patient was not provided benzodiazepines during this stay. 3. Anxiety. The patient was very tearful and anxious on my examination. I do believe she would be nefit from a long-term gastroenterology provider as well as a psychiatric provider. We discussed elian th of these. MEDICATIONS AT TIME OF DISPOSITION: No changes were made to her home list and includes Zofran only. FOLLOWUP APPOINTMENTS: It is recommended that the patient get established with an outpatient gastro enterologist for ongoing diagnostics and monitoring of her chronic nausea and vomiting. I spent greater than 30 minutes in the planning and coordination of this discharge. /[id number]/MODL
== END 2016-12-07 11:52 | disposition home or self-care (01) ==
LOC: CED 06:57 → CEDHOLD 09:52 → INTOOBSV 10:12 → OBSVTOIN 10:12 → F1N 11:11
PROVIDERS: ADMIT Hospitalist; ATTEND Hospitalist
PROC: 3E0337Z Introduction of Electrolytic and Water Balance Substance into Peripheral Vein, Percutaneous Approach (ICD-10-PCS; principal; 2016-12-06)
DX: G43.A0 Cyclical vomiting, in migraine, not intractable (principal); F12.10 Cannabis abuse, uncomplicated; F41.9 Anxiety disorder, unspecified; F13.21 Sedative, hypnotic or anxiolytic dependence, in remission; K58.9 Irritable bowel syndrome, unspecified
CPT/HCPCS: 96361; 96374; 96375; 96376; 99285; G0378; 80048-PO; 84703-PO; 85025-PO; J1200; J1885; J2060; J2405; J2550

== ENCOUNTER 2016-12-11 07:56 | Emergency (ER) | payer OTHER, MEDICAID ==
[2016-12-11 08:02] VITALS: PULSE 74; RESP 18; TEMP 98
[2016-12-11] MEDS ORDERED: ONDANSETRON 4 MG/2 ML VIAL IVP ONE ×2 (08:06→08:39)
[2016-12-11] MEDS ORDERED: NS 1,000 ML IV ONE ×2 (08:06→09:26)
[2016-12-11 08:25] LABS: % IMMATURE GRANULYOCYTES 0.3 % (0.0-1.1); ABSOLUTE IMMATURE GRANULOCYTES 0.02 10^3/uL (0.00-0.10); ADD DIFF? NO; ADD MORPH? NO; ADD SCAN? NO; ATYPICAL LYMPHOCYTE FLAG 20 (0-99); FRAGMENT RBC FLAG 0 (0-99); HEMATOCRIT 44.1 % (38.0-47.0); HEMOGLOBIN 15.7 g/dL (12.6-16.3); LEFT SHIFT FLG 0 (0-99); LIPEMIA HEMOLYSIS FLAG 90 (0-99); MEAN CELL HEMOGLOBIN 31.7 pg (27.9-34.1); MEAN CELL HEMOGLOBIN CONCENTR. 35.6 g/dL (32.4-36.7); MEAN CELL VOLUME 88.9 fL (81.5-99.8); MEAN PLATELET VOLUME 11.5 fL (8.7-11.7); PLATELET CLUMPS FLAG 0 (0-99); PLATELET COUNT 299 10^3/uL (150-400); RED BLOOD CELL COUNT 4.96 10^6/uL (4.18-5.33); RED CELL DISTRIBUTION WIDTH 12.5 % (11.5-15.2)
[2016-12-11 08:35] LABS: ALANINE AMINOTRANSFERASE 33 IU/L (9-52); ALBUMIN 4.3 g/dL (3.5-5.0); ALKALINE PHOSPHATASE 72 IU/L (38-126); ANION GAP 14 mEq/L (8-16); ASPARTATE AMINOTRANSFERASE 15 IU/L (14-46); BILIRUBIN,TOTAL 0.7 mg/dL (0.1-1.4); CALCIUM 9.6 mg/dL (8.5-10.4); CARBON DIOXIDE 19 mEq/l (22-31); CHLORIDE 106 mEq/L (97-110); CREATININE 0.8 mg/dL (0.6-1.0); GLOMERULAR FILTRATION RATE > 60; GLUCOSE 126 mg/dL (70-100); POTASSIUM 3.9 mEq/L (3.5-5.2); SODIUM 139 mEq/L (134-144); TOTAL PROTEIN 6.5 g/dL (6.3-8.2)
[2016-12-11] MEDS ORDERED: LORazepam 2 MG/ML INJ IVP ONE (08:38)
[2016-12-11 08:54] LABS: COLOR YELLOW; LEUKOCYTE ESTERASE,URINE TRACE (NEGATIVE); NITRITE,URINE NEGATIVE (NEGATIVE)
[2016-12-11 09:05] LABS: MUCUS TRACE /lpf (NONE-1+)
[2016-12-11] MEDS ORDERED: DIAZEPAM 10 MG/2 ML SYR IVP ONE (09:05)
[2016-12-11] MEDS ORDERED: HYOSCYAMINE SULFATE 0.125 MG TAB PO ONE (09:05)
[2016-12-11 09:06] LABS: AMORPHOUS 1+ /hpf (NONE-1+); BACTERIA TRACE /hpf (NONE SEEN)
[2016-12-11] MEDS ORDERED: METOCLOPRAMIDE 10 MG/2 ML VIAL IVP ONE ×2 (09:45→10:33)
[2016-12-11] MEDS ORDERED: KETOROLAC 30 MG/1 ML SDV IVP ONE (09:46)
--- NOTE | 2016-12-11 10:12 | EDPHY ---
H & P Stated Complaint: c/o vomiting Time Seen by Provider: 12/11/16 08:06 HPI/ROS: This patient complains of vomiting. She was discharged on December 07 from [facility] for cyclic vomiting syndrome and continues to use daily marijuana. She refused to accept the idea that her marijuana use may be contributing to her cyclic vomiting syndrome despite multiple practitioners counseling her regarding this. She reports that she felt better for a few days after admission and then had recurrence of vomiting last night. She has vomited several times since then with ongoing nausea is unable tolerate p.o. fluids. She has been taking oral Zofran for her nausea until she is no longer able to tolerate oral intake due to the vomiting. She reports associated generalized abdominal cramping that occurs after the vomiting. She states this is moderate to severe intensity. She reports having chronic anxiety as well and reports feeling anxious currently. ROS: No fevers or chills. No other constitutional symptoms HEENT: She reports recent URI symptoms consisting of coryza that is improving. Pulmonary: No significant coughing. She does have some dyspnea that seems to be a part of her anxiety. She reports no pleuritic pain. Cardiovascular: No chest pain. No heart palpitations GI: No hematemesis. No coffee-ground emesis. Normal bowel movements. There was no abdominal pain until after the vomiting started. : No urinary symptoms. Her last menstrual period was normal timing Integumentary: No rash or other complaints Musculoskeletal: After arrival she started complaining of generalized myalgias. Neuro: No focal numbness tingling weakness new: Psychiatric: Anxiety. She reports insomnia as well with only about 4 hours sleep tonight. She tried trazodone in the past without improvement. Complete review of symptoms is otherwise negative. Source: Patient Exam Limitations: No limitations - Personal History LMP (Females 10-55): 1-7 Days Ago Current Tetanus Diphtheria and Acellular Pertussis (TDAP): Yes - Medical/Surgical History Hx Asthma: No Hx Chronic Respiratory Disease: No Hx Diabetes: No Hx Cardiac Disease: No Hx Renal Disease: No Hx Cirrhosis: No Hx Alcoholism: No Hx HIV/AIDS: No Hx Splenectomy or Spleen Trauma: No Other PMH: PSHx: appy. PMHx: anxiety, stomach ulcers, irritable bowel syndrome - Social History Smoking Status: Never smoked Alcohol Use: None Drug Use: Marijuana (She admits once daily marijuana use for 10 years) Constitutional: Initial Vital Signs Temperature (C) 36.6 C 12/11/16 07:59 Heart Rate 74 12/11/16 07:59 Respiratory Rate 18 12/11/16 07:59 Blood Pressure 145/62 H 12/11/16 07:59 O2 Sat (%) 98 12/11/16 07:59 O2 Delivery Mode Nasal Cannula O2 (L/minute) 2 Allergies/Adverse Reactions: haloperidol [From Haldol] Allergy (Unknown, Verified 12/06/16 14:17) Other-Enter Comments haloperidol lactate [From Haldol] Allergy (Unknown, Verified 12/06/16 14:17) Other-Enter Comments Home Medications: Medication Instructions Recorded Ondansetron [Zofran Odt] 8 mg PO BID PRN 12/06/16 Medical Decision Making ED Course/Re-evaluation: A review of her labs reveals normal CBC, normal metabolic panel including LFTs negative lipase negative HCG IV normal saline bolus, Zofran total of 8 mg IV without relief Ativan 1 mg IV without relief Valium 5 mg without relief Benadryl 50 mg IV with 5 mg of Reglan Toradol 30 mg for muscle aches Patient has persistent vomiting despite these medications is given additional 5 mg of Reglan. Despite multiple rounds of medications the patient continues vomiting and requests admission. She requests [facility] for her admission. Discussion: Patient with history of cyclic vomiting syndrome with intractable vomiting warranting admission for further treatment. No evidence today of hepatitis, pancreatitis, metabolic disarray, or other complicating factors. I spoke to Dr. Segura, hospitalist at [facility] accepts the patient for admission for intractable vomiting - Data Points Laboratory Results: Laboratory Results 12/11/16 08:12 12/11/16 08:13 12/11/16 12/11/16 12/11/16 08:45 08:13 08:13 WBC RBC Hgb Hct MCV MCH MCHC RDW Plt Count MPV Neut % (Auto) Lymph % (Auto) [place] % (Auto) Eos % (Auto) Baso % (Auto) Nucleat RBC Rel Count Absolute Neuts (auto) Absolute Lymphs (auto) Absolute Monos (auto) Absolute Eos (auto) Absolute Basos (auto) Absolute Nucleated RBC Immature Gran % Immature Gran # Sodium 139 mEq/L mEq/L (134-144) Potassium 3.9 mEq/L mEq/L (3.5-5.2) Chloride 106 mEq/L mEq/L (97-110) Carbon Dioxide 19 mEq/l L mEq/l (22-31) Anion Gap 14 mEq/L mEq/L (8-16) BUN 5 mg/dL L mg/dL (7-23) Creatinine 0.8 mg/dL mg/dL (0.6-1.0) Estimated GFR > 60 Glucose 126 mg/dL H mg/dL (70-100) Calcium 9.6 mg/dL mg/dL (8.5-10.4) Total Bilirubin 0.7 mg/dL mg/dL (0.1-1.4) AST 15 IU/L IU/L (14-46) ALT 33 IU/L IU/L (9-52) Alkaline Phosphatase 72 IU/L IU/L (38-126) Total Protein 6.5 g/dL g/dL (6.3-8.2) Albumin 4.3 g/dL g/dL (3.5-5.0) Lipase 110.0 IU/L IU/L (23-300) Beta HCG, Qual NEGATIVE Urine Color YELLOW Urine Appearance HAZY Urine pH 7.0 (5.0-7.5) Ur Specific [place] 1.020 (1.002-1.030) Urine Protein NEGATIVE (NEGATIVE) Urine Ketones 1+ H (NEGATIVE) Urine Blood 2+ H (NEGATIVE) Urine Nitrate NEGATIVE (NEGATIVE) Urine Bilirubin NEGATIVE (NEGATIVE) Urine Urobilinogen 0.2 EU EU (0.2-1.0) Ur Leukocyte Esterase TRACE H (NEGATIVE) Urine RBC 1-3 /hpf /hpf (0-3) Urine WBC 10-15 /hpf H /hpf (0-3) Ur Epithelial Cells 3+ /lpf H /lpf (NONE-1+) Amorphous Sediment 1+ /hpf /hpf (NONE-1+) Urine Bacteria TRACE /hpf H /hpf (NONE SEEN) Urine Mucus TRACE /lpf /lpf (NONE-1+) Urine Glucose NEGATIVE (NEGATIVE) 12/11/16 08:12 WBC 7.62 10^3/uL 10^3/uL (3.80-9.50) RBC 4.96 10^6/uL 10^6/uL (4.18-5.33) Hgb 15.7 g/dL g/dL (12.6-16.3) Hct 44.1 % % (38.0-47.0) MCV 88.9 fL fL (81.5-99.8) MCH 31.7 pg pg (27.9-34.1) MCHC 35.6 g/dL g/dL (32.4-36.7) RDW 12.5 % % (11.5-15.2) Plt Count 299 10^3/uL 10^3/uL (150-400) MPV 11.5 fL fL (8.7-11.7) Neut % (Auto) 58.6 % % (39.3-74.2) Lymph % (Auto) 31.9 % % (15.0-45.0) [place] % (Auto) 5.1 % % (4.5-13.0) Eos % (Auto) 3.3 % % (0.6-7.6) Baso % (Auto) 0.8 % % (0.3-1.7) Nucleat RBC Rel Count 0.0 % % (0.0-0.2) Absolute Neuts (auto) 4.47 10^3/uL 10^3/uL (1.70-6.50) Absolute Lymphs (auto) 2.43 10^3/uL 10^3/uL (1.00-3.00) Absolute Monos (auto) 0.39 10^3/uL 10^3/uL (0.30-0.80) Absolute Eos (auto) 0.25 10^3/uL 10^3/uL (0.03-0.40) Absolute Basos (auto) 0.06 10^3/uL 10^3/uL (0.02-0.10) Absolute Nucleated RBC 0.00 10^3/uL 10^3/uL (0-0.01) Immature Gran % 0.3 % % (0.0-1.1) Immature Gran # 0.02 10^3/uL 10^3/uL (0.00-0.10) Sodium Potassium Chloride Carbon Dioxide Anion Gap BUN Creatinine Estimated GFR Glucose Calcium Total Bilirubin AST ALT Alkaline Phosphatase Total Protein Albumin Lipase Beta HCG, Qual Urine Color Urine Appearance Urine pH Ur Specific [place] Urine Protein Urine Ketones Urine Blood Urine Nitrate Urine Bilirubin Urine Urobilinogen Ur Leukocyte Esterase Urine RBC Urine WBC Ur Epithelial Cells Amorphous Sediment Urine Bacteria Urine Mucus Urine Glucose Medications Given: Discontinued Medications Diazepam (Valium Injection) 5 mg IVP EDNOW ONE Stop: 12/11/16 09:06 Last Admin: 12/11/16 09:14 Dose: 5 mg Diphenhydramine HCl (Benadryl Injection) 50 mg IVP EDNOW ONE Stop: 12/11/16 09:46 Last Admin: 12/11/16 10:01 Dose: 50 mg Hyoscyamine Sulfate (Levsin, Hyomax-Sl) 0.125 mg PO EDNOW ONE Stop: 12/11/16 09:06 Last Admin: 12/11/16 09:15 Dose: 0.125 mg Sodium Chloride (Ns) 1,000 mls @ 0 mls/hr IV ONCE ONE; Wide Open PRN Reason: Protocol Stop: 12/11/16 08:07 Last Admin: 12/11/16 08:23 Dose: 1,000 mls Sodium Chloride (Ns) 1,000 mls @ 0 mls/hr IV ONCE ONE PRN Reason: Wide Open Stop: 12/11/16 09:27 Last Admin: 12/11/16 09:27 Dose: 1,000 mls Ketorolac Tromethamine (Toradol) 30 mg IVP EDNOW ONE Stop: 12/11/16 09:47 Last Admin: 12/11/16 10:02 Dose: 30 mg Lorazepam (Ativan Injection) 1 mg IVP ONCE ONE Stop: 12/11/16 08:39 Last Admin: 12/11/16 08:51 Dose: 1 mg Metoclopramide HCl (Reglan Injection) 5 mg IVP EDNOW ONE Stop: 12/11/16 09:46 Last Admin: 12/11/16 10:02 Dose: 5 mg Metoclopramide HCl (Reglan Injection) 5 mg IVP EDNOW ONE Stop: 12/11/16 10:34 Last Admin: 12/11/16 10:39 Dose: 5 mg Ondansetron HCl (Zofran) 4 mg IVP EDNOW ONE Stop: 12/11/16 08:07 Last Admin: 12/11/16 08:20 Dose: 4 mg Ondansetron HCl (Zofran) 4 mg IVP EDNOW ONE Stop: 12/11/16 08:40 Last Admin: 12/11/16 08:54 Dose: 4 mg Departure - Departure Disposition: [facility] Clinical Impression: Intractable vomiting Qualifiers: Vomiting type: cyclical vomiting Nausea presence: with nausea Qualified Code(s) : G43.A1 - Cyclical vomiting, intractable Condition: Good
[2016-12-11 12:05] VITALS: BP 124/65; O2SAT 97
== END 2016-12-11 12:02 | disposition short-term general hospital (02) ==
LOC: CED 07:56
DX: G43.A1 Cyclical vomiting, in migraine, intractable (principal)
CPT/HCPCS: 80053-PO; 81003-PO; 81015-PO; 83690-PO; 84703-PO; 85025-PO; 96374; J1200; J1885; J2060; J2405; J2765

== ENCOUNTER 2016-12-23 06:51 | Observation (INO) | payer OTHER, MEDICAID ==
[2016-12-23] MEDS ORDERED: METOCLOPRAMIDE 10 MG/2 ML VIAL IVP ONE (07:08)
[2016-12-23] MEDS ORDERED: NS 1,000 ML IV ONE ×3 (07:08→10:29)
[2016-12-23] MEDS ORDERED: DIAZEPAM 10 MG/2 ML SYR IVP ONE ×2 (07:10→08:34)
[2016-12-23 07:18] LABS: % IMMATURE GRANULYOCYTES 0.4 % (0.0-1.1); ABSOLUTE IMMATURE GRANULOCYTES 0.05 10^3/uL (0.00-0.10); ADD DIFF? NO; ADD MORPH? NO; ADD SCAN? NO; ATYPICAL LYMPHOCYTE FLAG 0 (0-99); FRAGMENT RBC FLAG 0 (0-99); HEMATOCRIT 44.5 % (38.0-47.0); HEMOGLOBIN 15.8 g/dL (12.6-16.3); LEFT SHIFT FLG 0 (0-99); LIPEMIA HEMOLYSIS FLAG 90 (0-99); MEAN CELL HEMOGLOBIN 31.7 pg (27.9-34.1); MEAN CELL HEMOGLOBIN CONCENTR. 35.5 g/dL (32.4-36.7); MEAN CELL VOLUME 89.4 fL (81.5-99.8); MEAN PLATELET VOLUME 11.8 fL (8.7-11.7); PLATELET CLUMPS FLAG 20 (0-99); PLATELET COUNT 266 10^3/uL (150-400); RED BLOOD CELL COUNT 4.98 10^6/uL (4.18-5.33); RED CELL DISTRIBUTION WIDTH 12.2 % (11.5-15.2)
[2016-12-23 07:24] LABS: ANION GAP 19 mEq/L (8-16); CALCIUM 9.7 mg/dL (8.5-10.4); CARBON DIOXIDE 15 mEq/l (22-31); CHLORIDE 103 mEq/L (97-110); CREATININE 0.8 mg/dL (0.6-1.0); GLOMERULAR FILTRATION RATE > 60; GLUCOSE 159 mg/dL (70-100); POTASSIUM 3.6 mEq/L (3.5-5.2); SODIUM 137 mEq/L (134-144)
[2016-12-23] MEDS ORDERED: ONDANSETRON 4 MG/2 ML VIAL IVP ONE ×3 (08:15→11:41)
--- NOTE | 2016-12-23 08:16 | EDPHY ---
H & P Stated Complaint: c/o N/V x 3 days Time Seen by Provider: 12/23/16 07:02 HPI/ROS: This patient is known to our emergency department with history of cyclic vomiting syndrome with possible marijuana hyperemesis syndrome (10 years of daily MJ use) who presents with onset of vomiting last night at 10:00 p.m. after eating pizza. She tried oral Zofran with relief for period of time and was able to sleep from midnight till 4:00 a.m. when she awakened with recurrent vomiting that has persisted frequently until arrival this morning. She started developing tremulous hands in paresthesias this morning as well as hyperventilation the often accompany her episodes. Her last visit here was on December 11, 2016 I saw her for a similar episode of longer duration and despite multiple medications we had to admit her for intractable hyperemesis to [facility] per her request. She relates that she was simply treated with further medications and hydration while at [facility]. She has not followed up with a clinician since her admission. I reviewed the patient's discharge summary from [facility] on 12/11/2016 where she was treated with Compazine and Zofran for ongoing nausea and vomiting with some relief. She requested analgesics as well and was offered acetaminophen. She left AMA from [facility] on 12/12/2016. ROS: No fevers or chills. No other constitutional symptoms HEENT: No recent URI symptoms. Neuro: No headache. She has paresthesias in her hand and carpal spasms that started this morning. Pulmonary: No symptoms Cardiovascular: No lightheadedness. She does report chest pain that feels burning in nature that she attributes to acid reflux and vomiting. She states this is [id number] intensity. GI: No abdominal pain today. : No urinary symptoms. Her last menstrual period was normal timing 2 weeks ago. Integumentary: No complaints Endocrine: No polyuria or polydipsia. No other complaints Psychiatric: She gets anxious with these episodes. She denies any relief from shower hot bath for her vomiting symptoms she states that it actually "muro her skin" and makes her feel worse Completely symptoms otherwise negative.I reviewed the patient's discharge summary from her admission to [facility] on 12/11/2016 which she was treated with Compazine and Zofran for ongoing nausea and vomiting with some relief. She requested analgesics as well and was offered acetaminophen. She left AMA on 12/12/2016. Source: Patient Exam Limitations: No limitations - Personal History LMP (Females 10-55): 8-14 Days Ago - Medical/Surgical History PMH: Cyclic vomiting Marijuana abuse Hx Asthma: No Hx Chronic Respiratory Disease: No Hx Diabetes: No Hx Cardiac Disease: No Hx Renal Disease: No Hx Cirrhosis: No Hx Alcoholism: No Hx HIV/AIDS: No Hx Splenectomy or Spleen Trauma: No Other PMH: PSHx: appy. PMHx: anxiety, stomach ulcers, irritable bowel syndrome. with 1 tab - Family History Significant Family History: Other (Her father of acute pancreatitis is a complication of alcohol abuse) - Social History Smoking Status: Never smoked Alcohol Use: None Drug Use: Marijuana (Daily for more than 10 years) - Physical Exam Exam: Vital signs normal exception of mild hypertension at 140/100 initially. General Appearance: Anxious. Eyes: Pupils equal and round no pallor or injection. ENT, Mouth: Mucous membranes dry. Respiratory: There are no retractions, lungs are clear to auscultation. Hyperventilating Cardiovascular: Regular rate and rhythm. Gastrointestinal: Hypoactive bowel sounds. Soft with no tenderness in upper abdomen or organomegaly. She does have mild suprapubic tenderness with no guarding or rebound. No right lower quadrant or left lower quadrant tenderness Neurological: GCS 15 with no focal deficits. Tremors that seems voluntary with some intermittent carpal spasms. Skin: Warm and dry, no rashes. Musculoskeletal: Neck is supple nontender. Extremities are symmetrical, full range of motion. Psychiatric: Anxious. Otherwise normal DIFFERENTIAL DIAGNOSIS: After history and physical exam differential diagnosis was considered for episode of cyclic vomiting with dehydration, pancreatitis, metabolic disarray, Constitutional: Initial Vital Signs Temperature (C) 36.6 C 12/23/16 06:57 Heart Rate 78 12/23/16 06:57 Respiratory Rate 18 12/23/16 06:57 Blood Pressure 140/100 H 12/23/16 06:57 O2 Sat (%) 97 12/23/16 06:57 O2 Delivery Mode Room Air O2 (L/minute) 15 Allergies/Adverse Reactions: haloperidol [From Haldol] Allergy (Unknown, Verified 12/06/16 14:17) Other-Enter Comments haloperidol lactate [From Haldol] Allergy (Unknown, Verified 12/06/16 14:17) Other-Enter Comments Home Medications: Medication Instructions Recorded Ondansetron [Zofran Odt] 8 mg PO BID PRN 12/06/16 Medical Decision Making ED Course/Re-evaluation: IV normal saline bolus Valium 5 mg IV, Benadryl 50 mg IV, Reglan 10 mg IV 2nd L normal saline bolus Zofran 4 mg IV Levsin sublingual Patient continues with symptoms of dry heaves intermittently Imitrex 6 mg subcu and Toradol 30 mg IV I placed an oxygen mask on the patient's face explaining about hyperventilation and rebreathing carbon dioxide being beneficial. We took the strap off this mask so that she could simply hold it to her face and remove it when she had to vomit. We had an insignificant amount of oxygen flowing to the mask. Initially the patient refused this but over time she was found holding the mask to her face (it's difficult to horse show judge how much this helped). The patient had a very dramatic expression of pain anxiety from the subcu Imitrex injection of was given to the left posterior upper arm per cleaning that she "felt like her arm was going to fall off" she was reassured that the pain should pass & treated with ice to the area and a Band-Aid. On recheck after the subcu Imitrex-10 minutes later the patient reports that she feels she is getting worse and requests admission to the hospital. She cites the feeling of worsening anxiety asks for more medication for anxiety. I explained that we need to give time for the Imitrex to see if it will be effective in helping with her symptoms. 3rd L normal saline started A review of her labs initial revealed a significantly low bicarb of 15. I added on LFTs and lipase which reveals mild elevation of lipase to around 700. Amylase is also elevated slightly to around 200. Given her ongoing symptoms with mild pancreatitis, patient warrants admission for further hydration and evaluation. Her LFTs are normal. I do not suspect biliary obstruction. I spoke with Palmira Muñoz who accepts the patient for admission to Dr. Rousseau at [facility] Patient is treated with Ativan 1 mg IV EMS arrived around mid day to transfer her to the hospital. Patient remained stable with ongoing symptoms - Data Points Laboratory Results: Laboratory Results 12/23/16 07:04 12/23/16 07:04 12/23/16 12/23/16 12/23/16 10:38 07:04 07:04 WBC RBC Hgb Hct MCV MCH MCHC RDW Plt Count MPV Neut % (Auto) Lymph % (Auto) [place] % (Auto) Eos % (Auto) Baso % (Auto) Nucleat RBC Rel Count Absolute Neuts (auto) Absolute Lymphs (auto) Absolute Monos (auto) Absolute Eos (auto) Absolute Basos (auto) Absolute Nucleated RBC Immature Gran % Immature Gran # Sodium 137 mEq/L mEq/L (134-144) Potassium 3.6 mEq/L mEq/L (3.5-5.2) Chloride 103 mEq/L mEq/L (97-110) Carbon Dioxide 15 mEq/l L mEq/l (22-31) Anion Gap 19 mEq/L H mEq/L (8-16) BUN 12 mg/dL mg/dL (7-23) Creatinine 0.8 mg/dL mg/dL (0.6-1.0) Estimated GFR > 60 Glucose 159 mg/dL H mg/dL (70-100) Calcium 9.7 mg/dL mg/dL (8.5-10.4) Total Bilirubin 0.9 mg/dL mg/dL (0.1-1.4) Conjugated Bilirubin 0.3 mg/dL mg/dL (0.0-0.5) Unconjugated Bilirubin 0.6 mg/dL mg/dL (0.0-1.1) AST 16 IU/L IU/L (14-46) ALT 24 IU/L IU/L (9-52) Alkaline Phosphatase 63 IU/L IU/L (38-126) Total Protein 6.7 g/dL g/dL (6.3-8.2) Albumin 4.5 g/dL g/dL (3.5-5.0) Amylase 207 IU/L H IU/L (30-110) Lipase 702.0 IU/L H IU/L (23-300) Beta HCG, Qual NEGATIVE 12/23/16 07:04 WBC 12.07 10^3/uL H 10^3/uL (3.80-9.50) RBC 4.98 10^6/uL 10^6/uL (4.18-5.33) Hgb 15.8 g/dL g/dL (12.6-16.3) Hct 44.5 % % (38.0-47.0) MCV 89.4 fL fL (81.5-99.8) MCH 31.7 pg pg (27.9-34.1) MCHC 35.5 g/dL g/dL (32.4-36.7) RDW 12.2 % % (11.5-15.2) Plt Count 266 10^3/uL 10^3/uL (150-400) MPV 11.8 fL H fL (8.7-11.7) Neut % (Auto) 78.3 % H % (39.3-74.2) Lymph % (Auto) 15.9 % % (15.0-45.0) [place] % (Auto) 4.2 % L % (4.5-13.0) Eos % (Auto) 0.7 % % (0.6-7.6) Baso % (Auto) 0.5 % % (0.3-1.7) Nucleat RBC Rel Count 0.0 % % (0.0-0.2) Absolute Neuts (auto) 9.44 10^3/uL H 10^3/uL (1.70-6.50) Absolute Lymphs (auto) 1.92 10^3/uL 10^3/uL (1.00-3.00) Absolute Monos (auto) 0.51 10^3/uL 10^3/uL (0.30-0.80) Absolute Eos (auto) 0.09 10^3/uL 10^3/uL (0.03-0.40) Absolute Basos (auto) 0.06 10^3/uL 10^3/uL (0.02-0.10) Absolute Nucleated RBC 0.00 10^3/uL 10^3/uL (0-0.01) Immature Gran % 0.4 % % (0.0-1.1) Immature Gran # 0.05 10^3/uL 10^3/uL (0.00-0.10) Sodium Potassium Chloride Carbon Dioxide Anion Gap BUN Creatinine Estimated GFR Glucose Calcium Total Bilirubin Conjugated Bilirubin Unconjugated Bilirubin AST ALT Alkaline Phosphatase Total Protein Albumin Amylase Lipase Beta HCG, Qual Medications Given: Discontinued Medications Diazepam (Valium Injection) 5 mg IVP EDNOW ONE Stop: 12/23/16 07:11 Last Admin: 12/23/16 07:22 Dose: 5 mg Diazepam (Valium Injection) 5 mg IVP EDNOW ONE Stop: 12/23/16 08:35 Last Admin: 12/23/16 08:47 Dose: 5 mg Diphenhydramine HCl (Benadryl Injection) 50 mg IVP EDNOW ONE Stop: 12/23/16 07:10 Last Admin: 12/23/16 07:22 Dose: 50 mg Hyoscyamine Sulfate (Levsin, Hyomax-Sl) 0.125 mg PO EDNOW ONE Stop: 12/23/16 08:44 Last Admin: 12/23/16 08:46 Dose: 0.125 mg Sodium Chloride (Ns) 1,000 mls @ 0 mls/hr IV EDNOW ONE; Wide Open PRN Reason: Protocol Stop: 12/23/16 07:09 Last Admin: 12/23/16 07:21 Dose: 1,000 mls Sodium Chloride (Ns) 1,000 mls @ 0 mls/hr IV ONCE ONE PRN Reason: Wide Open Stop: 12/23/16 08:36 Last Admin: 12/23/16 08:46 Dose: 1,000 mls Sodium Chloride (Ns) 1,000 mls @ 0 mls/hr IV EDNOW ONE; Wide Open PRN Reason: Protocol Stop: 12/23/16 10:30 Last Admin: 12/23/16 10:33 Dose: 1,000 mls Ketorolac Tromethamine (Toradol) 30 mg IVP EDNOW ONE Stop: 12/23/16 09:15 Last Admin: 12/23/16 09:26 Dose: 30 mg Lorazepam (Ativan Injection) 1 mg IVP EDNOW ONE Stop: 12/23/16 10:48 Last Admin: 12/23/16 11:00 Dose: 1 mg Metoclopramide HCl (Reglan Injection) 10 mg IVP EDNOW ONE Stop: 12/23/16 07:09 Last Admin: 12/23/16 07:23 Dose: 10 mg Ondansetron HCl (Zofran) 4 mg IVP EDNOW ONE Stop: 12/23/16 08:16 Last Admin: 12/23/16 08:48 Dose: 4 mg Ondansetron HCl (Zofran) 4 mg IVP EDNOW ONE Stop: 12/23/16 10:40 Last Admin: 12/23/16 11:01 Dose: 4 mg Sumatriptan Succinate (Imitrex Sc Injection) 6 mg SC EDNOW ONE Stop: 12/23/16 09:15 Last Admin: 12/23/16 09:29 Dose: 6 mg Departure - Departure Disposition: [facility] Clinical Impression: Hyperventilation Cyclic vomiting syndrome Qualifiers: Vomiting Intractability: intractable Nausea presence: with nausea Qualified Code(s): G43.A1 - Cyclical vomiting, intractable Acute pancreatitis Qualifiers: Pancreatitis type: idiopathic Acute pancreatitis complication: unspecified Qualified Code(s): K85.00 - Idiopathic acute pancreatitis without necrosis or infection Condition: Fair
[2016-12-23] MEDS ORDERED: HYOSCYAMINE SULFATE 0.125 MG TAB PO ONE (08:43)
[2016-12-23] MEDS ORDERED: SUMAtriptan 6 MG/0.5 ML VIAL SC ONE (09:14)
[2016-12-23] MEDS ORDERED: KETOROLAC 30 MG/1 ML SDV IVP ONE (09:14)
[2016-12-23] MEDS ORDERED: LORazepam 2 MG/ML INJ IVP ONE (10:47)
[2016-12-23 10:49] LABS: ALBUMIN 4.5 g/dL (3.5-5.0); BILIRUBIN,TOTAL 0.9 mg/dL (0.1-1.4); BILIRUBIN-CONJUGATED 0.3 mg/dL (0.0-0.5); BILIRUBIN-UNCONJUGATED 0.6 mg/dL (0.0-1.1); TOTAL PROTEIN 6.7 g/dL (6.3-8.2)
[2016-12-23 11:36] LABS: COLOR YELLOW; LEUKOCYTE ESTERASE,URINE NEGATIVE (NEGATIVE); NITRITE,URINE NEGATIVE (NEGATIVE); PH,URINE 6.5 (5.0-7.5)
[2016-12-23] MEDS ORDERED: ONDANSETRON 4 MG/2 ML VIAL ONE (11:47)
[2016-12-23] MEDS: ONDANSETRON 4 MG/2 ML VIAL IVP ONE ×2 (13:07→13:31)
[2016-12-23] MEDS ORDERED: PROMETHAZINE HCL 25 MG/ML INJ IVP PRN (13:08)
[2016-12-23] MEDS ORDERED: ACETAMINOPHEN 500 MG TAB PO PRN (13:08)
[2016-12-23] MEDS ORDERED: ONDANSETRON 4 MG/2 ML VIAL IVP PRN (13:08)
[2016-12-23] MEDS ORDERED: ONDANSETRON DISINTEGRATING 4 MG TAB PO PRN (13:08)
[2016-12-23] MEDS ORDERED: METOCLOPRAMIDE 10 MG/2 ML VIAL IVP PRN (13:08)
[2016-12-23] MEDS ORDERED: KETOROLAC 30 MG/1 ML SDV IVP PRN (13:09)
[2016-12-23] MEDS ORDERED: D5W 1/2 NS W/ 20 KCl/L 1,000 ML IV SCH (13:15)
[2016-12-23 16:20] VITALS: BP 123/92; PULSE 114; RESP 24; TEMP 96.7; O2SAT 99
--- NOTE | 2016-12-23 17:22 | GHP ---
[f rep st] HISTORY AND PHYSICAL DATE OF ADMISSION: 12/23/2016 CHIEF COMPLAINT: Nausea, vomiting. HISTORY OF PRESENT ILLNESS: This is a 31-year-old female, who has been admitted many times over the last year for cyclic vomiting syndrome. She does smoke marijuana daily and has irritable bowel syn drome. She presents with a 1-day history of vomiting after eating pizza. The vomiting continued an d she began to hyperventilate, and then developed a little bit of numbness and tingling. She has a little bit of epigastric pains. No fevers or chills. No diarrhea. REVIEW OF SYSTEMS: A 10-point review of systems was obtained and was negative. PAST MEDICAL HISTORY: 1. Cyclic vomiting syndrome. 2. Irritable bowel syndrome. 3. Anxiety. SOCIAL HISTORY: Does use marijuana daily. No alcohol. FAMILY HISTORY: Father of alcoholic pancreatitis. PHYSICAL EXAM: VITAL SIGNS: Afebrile, blood pressure is 134/82, heart rate 94, oxygen saturation 9 8% on room air. GENERAL: The patient is well developed, no apparent distress. HEENT: Nonicteric sclerae. Extraocular movements intact. Moist mucous membranes. NECK: Supple. No thyromegaly. L UNGS: Good effort. Clear to auscultation bilaterally. CARDIOVASCULAR: Regular rate and rhythm. No murmurs or gallops. ABDOMEN: Positive bowel sounds. Soft, nontender, nondistended. Positive b owel sounds. EXTREMITIES: No clubbing, cyanosis, or edema. SKIN: Without rash. Warm, dry, intac t. NEUROLOGIC: Alert and oriented x3. Moves all 4 extremities equally. PSYCH: Normal affect. LABS: White count slightly elevated. Bicarb is a little low. LFTs were normal. Lipase slightly e levated at 702. ASSESSMENT: This is a 31-year-old female with history of cyclic vomiting syndrome, presenting with the same. PLAN: 1. Cyclic vomiting syndrome. The patient is actually feeling really good today. She wants to have a regular diet and she wants to go home if she is able to tolerate it. I think this is reasonable. 2. Elevated lipase. Patient does not have any epigastric pain currently, nor any epigastric tender ness with deep palpation. I think the elevated lipase is from vomiting. I think she can go home af ter she eats. /[id number]/MODL
== END 2016-12-23 17:31 | disposition home or self-care (01) ==
LOC: CED 06:51 → CEDHOLD 10:59 → F3E 12:38
PROVIDERS: ADMIT Internal Medicine; ATTEND Internal Medicine
PROC: 3E0337Z Introduction of Electrolytic and Water Balance Substance into Peripheral Vein, Percutaneous Approach (ICD-10-PCS; principal; 2016-12-23)
DX: G43.A1 Cyclical vomiting, in migraine, intractable (principal); R74.8 Abnormal levels of other serum enzymes; R06.4 Hyperventilation; E86.9 Volume depletion, unspecified; F12.10 Cannabis abuse, uncomplicated; F41.9 Anxiety disorder, unspecified; K58.9 Irritable bowel syndrome, unspecified; Z87.11 Personal history of peptic ulcer disease; Z88.0 Allergy status to penicillin
CPT/HCPCS: G0378 ×2; 80048-PO; 80076-PO; 81003-PO; 82150-PO; 83690-PO; 84703-PO; 85025-PO; 96374; J1200; J1885; J2060; J2405; J2550; J2765; J3030

== ENCOUNTER 2017-01-10 07:31 | Observation (INO) | payer MEDICAID, OTHER ==
[2017-01-10] MEDS ORDERED: METOCLOPRAMIDE 10 MG/2 ML VIAL IVP ONE (07:57)
[2017-01-10] MEDS ORDERED: PROMETHAZINE HCL 25 MG/ML INJ IVP ONE (07:57)
[2017-01-10] MEDS ORDERED: NS 1,000 ML IV ONE ×2 (07:57)
[2017-01-10] MEDS ORDERED: ONDANSETRON 4 MG/2 ML VIAL IVP ONE (07:57)
[2017-01-10 08:04] LABS: % IMMATURE GRANULYOCYTES 0.2 % (0.0-1.1); ABSOLUTE IMMATURE GRANULOCYTES 0.01 10^3/uL (0.00-0.10); ADD DIFF? NO; ADD MORPH? NO; ADD SCAN? NO; ATYPICAL LYMPHOCYTE FLAG 10 (0-99); FRAGMENT RBC FLAG 0 (0-99); HEMATOCRIT 44.8 % (38.0-47.0); HEMOGLOBIN 15.9 g/dL (12.6-16.3); LEFT SHIFT FLG 0 (0-99); LIPEMIA HEMOLYSIS FLAG 90 (0-99); MEAN CELL HEMOGLOBIN 31.9 pg (27.9-34.1); MEAN CELL HEMOGLOBIN CONCENTR. 35.5 g/dL (32.4-36.7); MEAN PLATELET VOLUME 11.7 fL (8.7-11.7); PLATELET CLUMPS FLAG 10 (0-99); PLATELET COUNT 261 10^3/uL (150-400); RED BLOOD CELL COUNT 4.98 10^6/uL (4.18-5.33); RED CELL DISTRIBUTION WIDTH 12.3 % (11.5-15.2)
[2017-01-10 08:21] LABS: ALANINE AMINOTRANSFERASE 26 IU/L (9-52); ALBUMIN 4.4 g/dL (3.5-5.0); ALKALINE PHOSPHATASE 64 IU/L (38-126); ANION GAP 15 mEq/L (8-16); ASPARTATE AMINOTRANSFERASE 17 IU/L (14-46); BILIRUBIN,TOTAL 1.4 mg/dL (0.1-1.4); BILIRUBIN-CONJUGATED 0.2 mg/dL (0.0-0.5); BILIRUBIN-UNCONJUGATED 1.2 mg/dL (0.0-1.1); CALCIUM 9.9 mg/dL (8.5-10.4); CARBON DIOXIDE 18 mEq/l (22-31); CHLORIDE 105 mEq/L (97-110); GLOMERULAR FILTRATION RATE > 60; GLUCOSE 143 mg/dL (70-100); SODIUM 138 mEq/L (134-144); TOTAL PROTEIN 6.9 g/dL (6.3-8.2)
--- NOTE | 2017-01-10 08:28 | EDPHY ---
H & P Time Seen by Provider: 01/10/17 07:50 HPI/ROS: CHIEF COMPLAINT: Persistent vomiting HISTORY OF PRESENT ILLNESS: 31-year-old female with a history of cyclic vomiting syndrome presents with persistent vomiting. Onset of severe and uncontrolled anxiety last evening, followed by multiple episodes of vomiting. Associated with tingling all over this morning. Zofran ODT without relief. No associated abdominal pain, fever or diarrhea. Similar to prior episodes of cyclic vomiting syndrome. Cyclic vomiting syndrome symptoms are typically preceded by severe anxiety. She is a daily marijuana user. REVIEW OF SYSTEMS: Constitutional: No fever, no chills Eyes: No visual changes ENT: No sore throat Respiratory: No cough, no shortness of breath Cardiac: No chest pain Genitourinary: No hematuria, no dysuria Musculoskeletal: No leg pain or swelling Skin: No rash Neurological: No headache, no weakness Psychiatric: No depression Past Medical/Surgical History: Cyclic vomiting syndrome Anxiety Social History: Single No PCP Smoking Status: Never smoked Physical Exam: General Appearance: Alert, pleasant, hyperventilating Eyes: Pupils equal and round, no conjunctival pallor ENT, Mouth: Mucous membranes moist Neck: Normal inspection Respiratory: Lungs are clear to auscultation Cardiovascular: Regular rate and rhythm Gastrointestinal: Abdomen is soft, mild epigastric tenderness Neurological: A&O, nonfocal, normal gait Skin: Warm and dry, no rash Extremities: normal inspection Psychiatric: anxious Constitutional: Initial Vital Signs Temperature (C) 36.3 C 01/10/17 07:40 Heart Rate 75 01/10/17 07:40 Respiratory Rate 28 H 01/10/17 07:40 O2 Sat (%) 99 01/10/17 07:40 O2 Delivery Mode Room Air Allergies/Adverse Reactions: haloperidol [From Haldol] Allergy (Unknown, Verified 01/10/17 07:43) Other-Enter Comments haloperidol lactate [From Haldol] Allergy (Unknown, Verified 01/10/17 07:43) Other-Enter Comments Home Medications: Medication Instructions Recorded Ondansetron [Zofran Odt] 8 mg PO BID PRN 12/06/16 Medical Decision Making ED Course/Re-evaluation: This patient presents with persistent vomiting and a prior diagnosis of cyclic vomiting syndrome. I reviewed her past medical record and she usually requires admission for ongoing vomiting. She states that she gets hallucinations when she receives Haldol, though from her medical record it appears that she has had Haldol previously without documented adverse reaction. Initially I gave her Phenergan 25 mg IV, Reglan 10 mg IV and Zofran 4 mg IV, as well as IV normal saline. She continued to have loud and forceful dry heaves. Zyprexa 5 mg ODT and Benadryl 25 mg IV given. Continued dry heaving. Observed for 3+ hrs in ED , pt asking to be admitted. States she does not feel better. Abdominal exam remains benign. The hospitalist service was consulted for admission. Differential Diagnosis: Differential diagnosis includes though it is not limited to appendicitis, cholecystitis, diverticulitis, pyelonephritis, bowel perforation, small bowel obstruction. - Data Points Laboratory Results: Laboratory Results 01/10/17 07:55 01/10/17 07:55 01/10/17 01/10/17 01/10/17 09:46 07:55 07:55 WBC 6.00 10^3/uL 10^3/uL (3.80-9.50) RBC 4.98 10^6/uL 10^6/uL (4.18-5.33) Hgb 15.9 g/dL g/dL (12.6-16.3) Hct 44.8 % % (38.0-47.0) MCV 90.0 fL fL (81.5-99.8) MCH 31.9 pg pg (27.9-34.1) MCHC 35.5 g/dL g/dL (32.4-36.7) RDW 12.3 % % (11.5-15.2) Plt Count 261 10^3/uL 10^3/uL (150-400) MPV 11.7 fL fL (8.7-11.7) Neut % (Auto) 61.6 % % (39.3-74.2) Lymph % (Auto) 30.3 % % (15.0-45.0) Kimball % (Auto) 5.2 % % (4.5-13.0) Eos % (Auto) 1.5 % % (0.6-7.6) Baso % (Auto) 1.2 % % (0.3-1.7) Nucleat RBC Rel Count 0.0 % % (0.0-0.2) Absolute Neuts (auto) 3.70 10^3/uL 10^3/uL (1.70-6.50) Absolute Lymphs (auto) 1.82 10^3/uL 10^3/uL (1.00-3.00) Absolute Monos (auto) 0.31 10^3/uL 10^3/uL (0.30-0.80) Absolute Eos (auto) 0.09 10^3/uL 10^3/uL (0.03-0.40) Absolute Basos (auto) 0.07 10^3/uL 10^3/uL (0.02-0.10) Absolute Nucleated RBC 0.00 10^3/uL 10^3/uL (0-0.01) Immature Gran % 0.2 % % (0.0-1.1) Immature Gran # 0.01 10^3/uL 10^3/uL (0.00-0.10) Sodium 138 mEq/L mEq/L (134-144) Potassium 4.0 mEq/L mEq/L (3.5-5.2) Chloride 105 mEq/L mEq/L (97-110) Carbon Dioxide 18 mEq/l L mEq/l (22-31) Anion Gap 15 mEq/L mEq/L (8-16) BUN 11 mg/dL mg/dL (7-23) Creatinine 1.0 mg/dL mg/dL (0.6-1.0) Estimated GFR > 60 Glucose 143 mg/dL H mg/dL (70-100) Calcium 9.9 mg/dL mg/dL (8.5-10.4) Total Bilirubin 1.4 mg/dL mg/dL (0.1-1.4) Conjugated Bilirubin 0.2 mg/dL mg/dL (0.0-0.5) Unconjugated Bilirubin 1.2 mg/dL H mg/dL (0.0-1.1) AST 17 IU/L IU/L (14-46) ALT 26 IU/L IU/L (9-52) Alkaline Phosphatase 64 IU/L IU/L (38-126) Total Protein 6.9 g/dL g/dL (6.3-8.2) Albumin 4.4 g/dL g/dL (3.5-5.0) Lipase 103.0 IU/L IU/L (23-300) Urine Opiates Screen NEGATIVE (NEGATIVE) Urine Barbiturates NEGATIVE (NEGATIVE) Ur Phencyclidine Scrn NEGATIVE (NEGATIVE) Ur Amphetamine Screen NEGATIVE (NEGATIVE) U Benzodiazepines Scrn NEGATIVE (NEGATIVE) Urine Cocaine Screen NEGATIVE (NEGATIVE) U Marijuana (THC) Screen NON-NEGATIVE H (NEGATIVE) Medications Given: Discontinued Medications Diphenhydramine HCl (Benadryl Injection) 25 mg IVP EDNOW ONE Stop: 01/10/17 09:02 Last Admin: 01/10/17 09:19 Dose: 25 mg Sodium Chloride (Ns) 1,000 mls @ 0 mls/hr IV EDNOW ONE; Wide Open PRN Reason: Protocol Stop: 01/10/17 07:58 Last Admin: 01/10/17 08:12 Dose: 1,000 mls Sodium Chloride (Ns) 1,000 mls @ 0 mls/hr IV EDNOW ONE; Wide Open PRN Reason: Protocol Stop: 01/10/17 07:58 Last Admin: 01/10/17 09:15 Dose: 1,000 mls Metoclopramide HCl (Reglan Injection) 10 mg IVP EDNOW ONE Stop: 01/10/17 07:58 Last Admin: 01/10/17 08:11 Dose: 10 mg Olanzapine (Zyprexa Zydis) 5 mg PO EDNOW ONE Stop: 01/10/17 09:02 Last Admin: 01/10/17 09:20 Dose: Not Given Olanzapine (Zyprexa Zydis) 5 mg PO EDNOW ONE Stop: 01/10/17 09:32 Last Admin: 01/10/17 09:30 Dose: 5 mg Ondansetron HCl (Zofran) 4 mg IVP EDNOW ONE Stop: 01/10/17 07:58 Last Admin: 01/10/17 08:03 Dose: 4 mg Promethazine HCl (Phenergan) 25 mg IVP EDNOW ONE Stop: 01/10/17 07:58 Last Admin: 01/10/17 08:05 Dose: 25 mg Departure - Departure Disposition: [facility] Clinical Impression: Cyclic vomiting syndrome Qualifiers: Vomiting Intractability: non-intractable Nausea presence: with nausea Qualified Code(s): G43.A0 - Cyclical vomiting, not intractable Condition: Good Instructions: Acute Nausea and Vomiting (ED) Additional Instructions: Clear liquids for 24 hours. Advance diet as tolerated.
[2017-01-10] MEDS ORDERED: OLANZapine DISINTEGR 5 MG TAB PO ONE ×2 (09:01→09:31)
[2017-01-10] MEDS ORDERED: PROCHLORPERAZINE MALEATE 25 MG SUPPR PR ONE (11:48)
[2017-01-10] MEDS ORDERED: ONDANSETRON DISINTEGRATING 4 MG TAB PO PRN (11:54)
[2017-01-10] MEDS ORDERED: ONDANSETRON 4 MG/2 ML VIAL IVP PRN (11:54)
[2017-01-10] MEDS ORDERED: ACETAMINOPHEN 325 MG TAB PO PRN (11:54)
[2017-01-10] MEDS ORDERED: diphenhydrAMINE 25 MG CAP PO PRN (11:54)
[2017-01-10] MEDS ORDERED: LORazepam 0.5 MG TAB PO PRN (11:54)
[2017-01-10] MEDS: LORazepam 2 MG/ML INJ IVP PRN ×2 (13:37→18:54)
[2017-01-10] MEDS: D5W 1/2 NS 1,000 ML IV SCH ×2 (14:21→23:48)
[2017-01-10] MEDS: CYCLOBENZAPRINE 10 MG TAB PO SCH ×2 (16:51→22:10)
[2017-01-10] MEDS ORDERED: ZOLPIDEM TARTRATE 5 MG TAB PO ONE ×2 (18:30→21:00)
[2017-01-10] MEDS: PROMETHAZINE HCL 25 MG/ML INJ IVP PRN (18:55)
--- NOTE | 2017-01-10 20:19 | GHP ---
[f rep st] HISTORY AND PHYSICAL DATE OF ADMISSION: 01/10/2017 CHIEF COMPLAINT: Nausea, vomiting, anxiety. HISTORY OF PRESENT ILLNESS: This patient is a 31-year-old female who has had multiple admissions fo r recurrent cyclic vomiting. She is a daily marijuana user but every few weeks she gets worsening n ausea and vomiting, gets worried about it which then makes it even worse and is unable to manage at home. Her last admission was December 23, 2016. She has a history of irritable bowel syndrome also. S he has Phenergan at home, 8 mg. she said that she started to take that last night when her symptoms started but that it was not helping. She denies any diarrhea. She denies any blood in her stool o r dark tarry stools. She denies any blood in her vomit. She denies any fevers, cough, headache. S he has had a little bit of subjective chills since she has been vomiting. She cannot identify her primary care provider's name, says it is a holistic doctor in [place] but she has not seen her in at least 6 months. PAST MEDICAL HISTORY: Cyclic vomiting syndrome. Irritable bowel syndrome. Anxiety. Chronic marij uana use. SOCIAL HISTORY: She denies any alcohol use. She does admit to daily marijuana use but she denies a ny other illicit drugs. She is single but has a boyfriend. She denies sexual activity or con trol use. FAMILY HISTORY: Father of alcoholic pancreatitis. REVIEW OF SYSTEMS: A 10-point review of systems was performed but negative except as above and she is having some left thumb pain. OBJECTIVE: VITAL SIGNS: Blood pressure 117/78, heart rate is 100, she is 99% on room air with a te mperature of 98.6. GENERAL: She is a thin female who is very anxious and intermittently retching. HEENT: Normocephalic, atraumatic. Pupils equal, round, reactive to light. Extraocular movements are intact. She wears glasses. Oropharynx shows moist mucous membranes and no obvious lesions. NE CK: Supple. No lymphadenopathy, thyromegaly or JVD. CARDIOVASCULAR: Tachy. No murmur, rub or ga llop. LUNGS: Clear to auscultation bilaterally. ABDOMEN: Soft, normoactive bowel sounds. Mildly tender to palpation in the lower quadrants but no epigastric or bilateral upper quadrant pain. : Deferred. SKIN: Shows no obvious rash or lesions. NEURO: Cranial nerves 2 through 12 are gross ly intact. She moves all extremities. She denies any numbness tingling or weakness. MUSCULOSKELET AL: She does have some tenderness to palpation in the left 1st MCP joint and positive Dupuytren's e xam. PSYCH: She is very anxious but speech is normal fluency and rate. She is cooperative. LABS: White blood cell count of 6.0, hemoglobin of 15.9, hematocrit 44.8, platelet count 261, jj l differential. Sodium 138, potassium 4.0, chloride of 105, CO2 of 18, BUN of 11, creatinine 1.0, g lucose 143, calcium 9.9, total bilirubin 1.4, unconjugated 1.2. AST of 17, ALT of 26, lipase was 10 3. Urine toxicology shows negative except for positive marijuana. ASSESSMENT AND PLAN: 1. Recurrent chronic cyclic vomiting syndrome, likely secondary to chronic marijuana use and underl sandhya anxiety disorder. IV fluids started, clears as tolerated, IV antinausea and antianxiety medici ly started. Have strongly encouraged her to reconnect with her primary care provider and to follow up with her primary care provider on a regular basis, even considering having an "emergency plan" f or when her symptoms worsen. 2. Irritable bowel syndrome. IV fluids and symptom management as above. For completeness sake, a test was ordered although she denies being sexually active currently. 3. Anxiety. This certainly may be the underlying drive for her recurrent symptoms as I suspect she is using marijuana to self-medicate. Could start a medication here if she is willing, other than a benzodiazepine as needed but suspect she will not be willing. I have strongly encouraged her to fo llow up with her primary care provider for a more adequate assessment, evaluation and treatment. 4. Deep venous thrombosis prophylaxis, none, low-dose ambulatory. 5. PCP in [place], patient is unsure of her name at this time. 6. Status: Likely 1-2 more midnights depending upon her symptom management and ability to hydrate orally. /[id number]/MODL
[2017-01-10] MEDS: PANTOPRAZOLE SODIUM 40 MG in NS 100 ML IV SCH (20:50)
[2017-01-10] MEDS: DICLOFENAC SODIUM 1% 100 GM GEL TP SCH (21:03)
[2017-01-10] MEDS: LORazepam 2 MG/ML INJ IVP SCH (23:46)
[2017-01-11] MEDS ORDERED: LORazepam 2 MG/ML INJ IVP SCH
[2017-01-11] MEDS: ONDANSETRON 4 MG/2 ML VIAL IVP PRN ×2 (05:08→11:27)
[2017-01-11] MEDS: LORazepam 2 MG/ML INJ IVP SCH ×2 (05:11→11:28)
[2017-01-11 05:16] LABS: HEMATOCRIT 43.1 % (38.0-47.0); HEMOGLOBIN 14.7 g/dL (12.6-16.3); MEAN CELL HEMOGLOBIN CONCENTR. 34.1 g/dL (32.4-36.7); MEAN CELL VOLUME 93.7 fL (81.5-99.8); RED BLOOD CELL COUNT 4.6 10^6/uL (4.18-5.33); RED CELL DISTRIBUTION WIDTH 12.7 % (11.5-15.2)
[2017-01-11 05:33] LABS: ALANINE AMINOTRANSFERASE 23 IU/L (9-52); ALBUMIN 3.7 g/dL (3.5-5.0); ALKALINE PHOSPHATASE 45 IU/L (38-126); ANION GAP 12 mEq/L (8-16); ASPARTATE AMINOTRANSFERASE 19 IU/L (14-46); CALCIUM 9.3 mg/dL (8.5-10.4); CARBON DIOXIDE 18 mEq/l (22-31); CHLORIDE 109 mEq/L (97-110); CREATININE 0.7 mg/dL (0.6-1.0); GLOMERULAR FILTRATION RATE > 60; GLUCOSE 92 mg/dL (70-100); POTASSIUM 3.4 mEq/L (3.5-5.2); SODIUM 139 mEq/L (134-144)
[2017-01-11] MEDS: DICLOFENAC SODIUM 1% 100 GM GEL TP SCH ×2 (05:42→13:14)
[2017-01-11] MEDS: PROMETHAZINE HCL 25 MG/ML INJ IVP PRN (09:05)
[2017-01-11] MEDS: PANTOPRAZOLE SODIUM 40 MG in NS 100 ML IV SCH (09:05)
[2017-01-11] MEDS: D5W 1/2 NS 1,000 ML IV SCH (09:06)
[2017-01-11] MEDS: CYCLOBENZAPRINE 10 MG TAB PO SCH (09:06)
[2017-01-11 09:33] VITALS: O2SAT 97
[2017-01-11 12:06] VITALS: BP 107/71; PULSE 100; RESP 18; TEMP 98.5
[2017-01-11] MEDS ORDERED: POTASSIUM CL 20 MEQ TAB PO ONE (13:37)
--- NOTE | 2017-01-11 13:55 | HOSPPROG ---
Hospitalist Progress Note Assessment/Plan: #Cyclic vomiting: due to marijuana. DC with zofran. No benzos with h/o dependence #Hypokalemia: replete #IBS: stable #Anxiety: needs to establish regular appts with her PCP #DC today Subjective: nausea better today Objective: Vital Signs Temp Pulse Resp BP Pulse Ox 36.9 C 100 18 107/71 97 01/11/17 12:06 01/11/17 12:06 01/11/17 12:06 01/11/17 12:06 01/11/17 12:06 Laboratory Results 01/11/17 04:46 01/11/17 04:46 01/10/17 01/11/17 01/12/17 05:59 05:59 05:59 Intake Total 4117 Output Total 340 Balance 3777 - Physical Exam Constitutional: no apparent distress Eyes: PERRL Ears, Nose, Mouth, Throat: moist mucous membranes Cardiovascular: regular rate and rhythym, no murmur, rub, or gallop Respiratory: no respiratory distress, no rales or rhonchi Gastrointestinal: normoactive bowel sounds, soft, non-tender abdomen Genitourinary: no bladder fullness Skin: warm Musculoskeletal: full muscle strength Neurologic: AAOx3, CN II-XII Intact Psychiatric: anxious ICD10 Worksheet Patient Problems: Problems Problem Status Onset Cyclic vomiting syndrome Acute Acute pancreatitis Acute Benzodiazepine withdrawal Acute Cyclic vomiting syndrome Acute Dehydration Acute Hyperventilation Acute Intractable vomiting Acute Vomiting Acute Vomiting and diarrhea Acute
--- NOTE | 2017-01-11 15:06 | GDS ---
[f rep st] DISCHARGE SUMMARY DISCHARGE DIAGNOSES: 1. Cyclic vomiting syndrome. 2. Marijuana abuse. 3. History of benzodiazepine dependence. 4. Irritable bowel syndrome. 5. Anxiety. HISTORY OF PRESENT ILLNESS: The patient is a 31-year-old female with multiple admissions for recurr ent cyclic vomiting. She is a daily marijuana user. Her last admission was December 23, 2016. Her sym ptoms of uncontrolled nausea and vomiting began night prior to admission, but was not helpful. No d iarrhea. No fevers, chills, or sweats. She was to follow up with her holistic doctor, Dr. Hannon, at [facility] but has not done so. HOSPITAL COURSE BY PROBLEM: 1. Recurrent cyclic vomiting syndrome: Secondary to chronic marijuana use and underlying anxiety d isorder. She was rehydrated with IV fluids, p.r.n. antiemetics. She requested benzos at discharge; however, given history of dependence, this will not be provided. She needs to establish care with her PCP and have her anxiety treated properly along with marijuana cessation. 2. IBS: No evidence of flare. 3. Anxiety: Again, she needs to establish care with her PCP. DISPOSITION: Patient is stable for discharge. NEW MEDICATIONS: Zofran. FOLLOWUP: Follow up with Dr. Hannon. /[id number]/MODL
== END 2017-01-11 15:05 | disposition home or self-care (01) ==
LOC: CED 07:31 → CEDHOLD 11:02 → UNDOADMOB 11:02 → F1N 13:16
PROVIDERS: ADMIT Internal Medicine; ATTEND Internal Medicine
DX: K31.89 Other diseases of stomach and duodenum (principal); R11.10 Vomiting, unspecified; F12.180 Cannabis abuse with cannabis-induced anxiety disorder; K58.9 Irritable bowel syndrome, unspecified; F11.21 Opioid dependence, in remission
CPT/HCPCS: 96361; 96374; 96375; 99285; G0378; 80048-PO; 80076-PO; 80307-PO; 83690-PO; 85025-PO; J1200; J2060; J2405; J2550; J2765

== ENCOUNTER 2017-01-16 09:02 | Emergency (ER) | payer MEDICAID ==
[2017-01-16] MEDS ORDERED: NS 1,000 ML IV ONE (09:33)
[2017-01-16] MEDS ORDERED: PROMETHAZINE HCL 25 MG/ML INJ IVP ONE ×2 (09:33→13:55)
--- NOTE | 2017-01-16 09:33 | EDPHY ---
HPI/HX/ROS/PE/MDM Narrative: CHIEF COMPLAINT: Cyclic vomiting HISTORY OF PRESENT ILLNESS: The patient is a 31 y/o female who presents with cyclic vomiting onset this morning. She has an extensive history of cyclic vomiting with 10 ED visits in the last year and was most recently admitted on for the same symptoms. She has been unable to keep down fluids throughout the day and complains of persistent retching. She has associated diarrhea she believes is related to her IBS. She was given Zofran for previous visits, but notes that Phenergan has worked better. She is feeling anxious. Ptient reports receiving ativan while in hospital but has not continued as outpatient. Wishes to avoid benzos. Reports she no longer smokes marijuana. No fever, chills, chest pain, shortness of breath, palpitations, urinary complaints, headache, lightheadedness. REVIEW OF SYSTEMS: Aside from elements discussed in the HPI, a comprehensive 10-point review of systems was reviewed and is negative. PAST MEDICAL HISTORY: Irritable bowel syndrome, cyclic vomiting, appendectomy SOCIAL HISTORY: Non-smoker, occasional alcohol use, lives in [place] VITAL SIGNS: Reviewed by me GENERAL: Well-developed, well-nourished, actively retching without producing emesis, appears anxious, in no respiratory distress. HEENT: Atraumatic. Eyes: No icterus, no injection. Mouth: moist mucous membranes. No erythema or lesions. Neck: supple with no adenopathy. LUNGS: Clear to auscultation bilaterally, no wheezes, rhonchi or rales. CARDIAC: Regular rate and rhythm, no rubs, murmurs or gallops. ABDOMEN: No abdominal tenderness upon palpation, although she notes it does make her feel nauseous. Soft, nondistended, bowel sounds normal. BACK: Mild left flank tenderness. EXTREMITIES: No trauma. No edema. Range of motion is normal throughout. NEURO: Alert and oriented, grossly nonfocal. SKIN: Warm and dry, no rash. PSYCHIATRIC: Normal mentation, no agitation, anxious. Portions of this note were transcribed by a medical apparatus model maker. I personally performed a history, physical exam, medical decision making, and confirmed accuracy of information the transcribed note. ED Course: The patient is a 31 y/o female with a history of multiple admissions for cyclic vomiting who presents with a few-hour history of vomiting. On exam, she appears anxious and is actively retching without producing emesis. Abdomen is benign. Plan for IV, labs, and symptom management. 1L IV NS, 25mg IV Benadryl, 12.5 IV mg Phenergan, 2.5mg IV Haldol administered. 1120: Reassessed patient, she is ambulatory but still vomiting and anxious. Her labs are unremarkable. Her lipase is WNL. Plan for 10mg IV Ketamine and 1mg IV Ativan. Reassessed patient. She is feeling improved but complains of persistant nausea. Reglan administerd. first calender worker evaluated patient in ED. Arrangements made for appointment with her PCP tomorrow and her therapist in 2 days. Given script for clonazepam to help wiht severe anxiety. Also given phenergan. She will be discharged with standard chronic vomiting follow up instructions. Return precautions given. MDM: Diff dx considered included cannabinoid hyperemesis syndrome, cyclic vomiting, anxiety, pancreatitis, intraabdominal pathology such as appendicitis, gastritis , gastroenteritis. - Data Points Laboratory Results: Laboratory Results 01/16/17 09:27 01/16/17 09:27 Medications Given: Discontinued Medications Clonazepam (Klonopin) 1 mg PO EDNOW ONE Stop: 01/16/17 13:58 Last Admin: 01/16/17 14:16 Dose: 1 mg Diphenhydramine HCl (Benadryl Injection) 25 mg IVP EDNOW ONE Stop: 01/16/17 09:36 Last Admin: 01/16/17 09:42 Dose: 25 mg Haloperidol Lactate (Haldol Injection) 2.5 mg IVP EDNOW ONE Stop: 01/16/17 09:36 Last Admin: 01/16/17 09:45 Dose: Not Given Sodium Chloride (Ns) 1,000 mls @ 0 mls/hr IV EDNOW ONE; Wide Open PRN Reason: Protocol Stop: 01/16/17 09:34 Last Admin: 01/16/17 09:42 Dose: 1,000 mls Ketamine HCl (Ketamine) 10 mg IVP EDNOW ONE Stop: 01/16/17 11:25 Last Admin: 01/16/17 11:32 Dose: 10 mg Lorazepam (Ativan Injection) 1 mg IVP EDNOW ONE Stop: 01/16/17 11:25 Last Admin: 01/16/17 11:32 Dose: 1 mg Metoclopramide HCl (Reglan Injection) 10 mg IVP EDNOW ONE Stop: 01/16/17 13:55 Last Admin: 01/16/17 14:12 Dose: 10 mg Promethazine HCl (Phenergan) 12.5 mg IVP EDNOW ONE Stop: 01/16/17 09:34 Last Admin: 01/16/17 09:42 Dose: 12.5 mg Promethazine HCl (Phenergan) 12.5 mg IVP ONCE ONE Stop: 01/16/17 13:56 Last Admin: 01/16/17 14:15 Dose: 12.5 mg General Time Seen by Provider: 01/16/17 09:16 Initial Vital Signs: Initial Vital Signs Temperature (C) 36.4 C 01/16/17 09:08 Heart Rate 81 01/16/17 09:08 Respiratory Rate 25 H 01/16/17 09:08 Blood Pressure 136/115 H 01/16/17 09:08 O2 Sat (%) 99 01/16/17 09:08 O2 Delivery Mode Room Air Allergies/Adverse Reactions: haloperidol [From Haldol] Allergy (Unknown, Verified 01/16/17 09:07) Other-Enter Comments haloperidol lactate [From Haldol] Allergy (Unknown, Verified 01/16/17 09:07) Other-Enter Comments Home Medications: Medication Instructions Recorded Ondansetron Odt [Zofran Odt 4 mg 4 mg PO Q4 #15 tab 01/11/17 (*)] Dicyclomine [Bentyl 20 MG (*)] 20 mg PO QID PRN #10 tab 01/16/17 Promethazine HCl [Phenergan 25mg 25 mg PO TID PRN #10 tab 01/16/17 (*)] clonazePAM [klonoPIN (*)] 1 mg PO BID PRN #8 tab 01/16/17 Departure - Departure Disposition: Home, Routine, Self-Care Clinical Impression: Hyperventilation, Anxiety Cyclic vomiting syndrome Qualifiers: Vomiting Intractability: non-intractable Nausea presence: with nausea Qualified Code(s): G43.A0 - Cyclical vomiting, not intractable Irritable bowel syndrome Qualifiers: Irritable bowel syndrome type: with diarrhea Qualified Code(s): K58.0 - Irritable bowel syndrome with diarrhea Condition: Good Instructions: Acute Nausea and Vomiting (ED), Anxiety (ED) Additional Instructions: 1. You have an appointment with your primary care physician, Ina Hannon, tomorrow at 3:30pm. It is very important that you keep this appointment. You also have an appointment with your primary therapist, Larissa Rodríguez, at 3: 45pm on 01/19/17, at [facility] at [address] [place] [address] ([phone]). Please check in at their blue pod desk area. Again, it is very important that you keep this appointment. 2. Please use clonazepam as needed for severe anxiety. 3. You been given a prescription for Phenergan. Please take this as needed for nausea. 4. You been given a prescription for Bentyl. You may use this as needed for crampy abdominal discomfort and diarrhea. 5. Stop smoking marijuana. Referrals: NONE *PRIMARY CARE P,. [Primary Care Provider] - As per Instructions Stand Alone Forms: Work Excuse Prescriptions: clonazePAM [klonoPIN (*)] 1 mg PO BID PRN #8 tab PRN Reason: Anxiety Dicyclomine [Bentyl 20 MG (*)] 20 mg PO QID PRN #10 tab PRN Reason: abdominal pain Promethazine HCl [Phenergan 25mg (*)] 25 mg PO TID PRN #10 tab PRN Reason: nausea Report Scribed for: Kaitlin Rushing Report Scribed by: Humaira Greer Date of Report: 01/16/17 Time of Report: 09:43
[2017-01-16] MEDS ORDERED: HALOPERIDOL LACT 5 MG/ML INJ IVP ONE (09:35)
[2017-01-16 09:39] LABS: % IMMATURE GRANULYOCYTES 0.4 % (0.0-1.1); ABSOLUTE IMMATURE GRANULOCYTES 0.04 10^3/uL (0.00-0.10); ADD DIFF? NO; ADD MORPH? NO; ADD SCAN? NO; ATYPICAL LYMPHOCYTE FLAG 0 (0-99); FRAGMENT RBC FLAG 0 (0-99); HEMATOCRIT 45.6 % (38.0-47.0); HEMOGLOBIN 16.1 g/dL (12.6-16.3); LEFT SHIFT FLG 0 (0-99); LIPEMIA HEMOLYSIS FLAG 90 (0-99); MEAN CELL HEMOGLOBIN 32.1 pg (27.9-34.1); MEAN CELL HEMOGLOBIN CONCENTR. 35.3 g/dL (32.4-36.7); MEAN CELL VOLUME 90.8 fL (81.5-99.8); MEAN PLATELET VOLUME 11.6 fL (8.7-11.7); PLATELET CLUMPS FLAG 10 (0-99); PLATELET COUNT 234 10^3/uL (150-400); RED BLOOD CELL COUNT 5.02 10^6/uL (4.18-5.33); RED CELL DISTRIBUTION WIDTH 12.2 % (11.5-15.2)
[2017-01-16 09:54] LABS: ALANINE AMINOTRANSFERASE 22 IU/L (9-52); ALBUMIN 4.4 g/dL (3.5-5.0); ALKALINE PHOSPHATASE 67 IU/L (38-126); ANION GAP 14 mEq/L (8-16); ASPARTATE AMINOTRANSFERASE 18 IU/L (14-46); BILIRUBIN,TOTAL 1.1 mg/dL (0.1-1.4); BILIRUBIN-CONJUGATED 0.3 mg/dL (0.0-0.5); BILIRUBIN-UNCONJUGATED 0.8 mg/dL (0.0-1.1); CALCIUM 9.9 mg/dL (8.5-10.4); CARBON DIOXIDE 18 mEq/l (22-31); CHLORIDE 104 mEq/L (97-110); CREATININE 0.9 mg/dL (0.6-1.0); GLOMERULAR FILTRATION RATE > 60; GLUCOSE 140 mg/dL (70-100); POTASSIUM 3.8 mEq/L (3.5-5.2); SODIUM 136 mEq/L (134-144); TOTAL PROTEIN 7.3 g/dL (6.3-8.2)
[2017-01-16] MEDS ORDERED: LORazepam 2 MG/ML INJ IVP ONE (11:24)
[2017-01-16] MEDS ORDERED: KETAMINE 100 MG/10 ML SYR IVP ONE (11:24)
[2017-01-16] MEDS ORDERED: METOCLOPRAMIDE 10 MG/2 ML VIAL IVP ONE (13:54)
[2017-01-16] MEDS ORDERED: clonazePAM 1 MG TAB PO ONE (13:57)
[2017-01-16 15:47] VITALS: BP 110/70; PULSE 70; RESP 16; TEMP 97.3; O2SAT 95
== END 2017-01-16 16:54 | disposition home or self-care (01) ==
DX: G43.A0 Cyclical vomiting, in migraine, not intractable (principal); K58.0 Irritable bowel syndrome with diarrhea; F41.9 Anxiety disorder, unspecified; R06.4 Hyperventilation; E86.9 Volume depletion, unspecified; Z90.49 Acquired absence of other specified parts of digestive tract
CPT/HCPCS: 96374; J1200; J2060; J2550; J2765

== ENCOUNTER 2017-02-12 08:05 | Emergency (ER) | payer MEDICAID ==
[2017-02-12 08:19] VITALS: TEMP 97.3
--- NOTE | 2017-02-12 08:31 | EDPHY ---
H & P Stated Complaint: vomiting, anxiety Time Seen by Provider: 02/12/17 08:13 HPI/ROS: CHIEF COMPLAINT: Anxiety, vomiting HISTORY OF PRESENT ILLNESS: 31-year-old female seen here multiple times in the past with anxiety vomiting. Patient reports a long history of anxiety and panic attacks. She also has cyclic vomiting syndrome and cannabis hyperemesis syndrome. She tells me when she starts vomiting, she becomes panicky which makes the vomiting worse. She reports working with her therapist at [facility] seen a and would like to avoid benzodiazepines. She recently has started on Wellbutrin to control panic attacks and takes amitriptyline also. Patient reports begin vomiting in the onboarding specialist hours. She began to be concerned regarding possibility of dehydration and attempted to drink 2 bottles of water. This led to more vomiting, exacerbating her panic attacks. Vomited Zofran this morning. Vomited Vistaril this morning. Reports she no longer has Phenergan. Also describes watery diarrhea. She does have a history of irritable bowel syndrome. No fevers, no cough, no urinary complaints. REVIEW OF SYSTEMS: Aside from elements discussed in the HPI, a comprehensive 10-point review of systems was reviewed and is negative. PAST MEDICAL HISTORY: IBS, cyclic vomiting, anxiety, panic attacks. Status post appendectomy SOCIAL HISTORY: Nonsmoker. Reports recently stopping marijuana "1-2 weeks ago ". However, on review of records the patient had reported that she quit smoking marijuana 1-2 weeks ago at the time that she was seen in early January. VITAL SIGNS Reviewed by me. GENERAL: Well-developed, well-nourished, retching. Visibly tachypneic, anxious. HEENT: Atraumatic. Eyes: No icterus, no injection. Mouth: moist mucous membranes. No erythema or lesions. Neck: supple with no adenopathy. LUNGS: Clear to auscultation bilaterally, no wheezes, rhonchi or rales. CARDIAC: Regular rate and rhythm, no rubs, murmurs or gallops. ABDOMEN: Soft, diffusely tender to even light palpation. No guarding or rebound. No distension. BACK: Bilateral flank tenderness. EXTREMITIES: No trauma. No edema. Range of motion is normal throughout. NEURO: Alert and oriented, grossly nonfocal. SKIN: Warm and dry, no rash. PSYCHIATRIC: Anxious. States she just wants the panic attacks to stop. - Medical/Surgical History Hx Asthma: No Hx Chronic Respiratory Disease: No Hx Diabetes: No Hx Cardiac Disease: No Hx Renal Disease: No Hx Cirrhosis: No Hx Alcoholism: No Hx HIV/AIDS: No Hx Splenectomy or Spleen Trauma: No Other PMH: PSHx: appy. PMHx: anxiety, stomach ulcers, irritable bowel syndrome. with 1 tab,cyclic vomiting,marijuana use - Social History Smoking Status: Former smoker Constitutional: Initial Vital Signs Temperature (C) 36.3 C 02/12/17 08:17 Heart Rate 69 02/12/17 08:17 Respiratory Rate 18 02/12/17 08:17 Blood Pressure 131/89 H 02/12/17 08:17 O2 Sat (%) 96 02/12/17 08:17 O2 Delivery Mode Room Air Allergies/Adverse Reactions: haloperidol [From Haldol] Allergy (Unknown, Verified 02/12/17 08:08) Other-Enter Comments haloperidol lactate [From Haldol] Allergy (Unknown, Verified 02/12/17 08:08) Other-Enter Comments Home Medications: Medication Instructions Recorded Ondansetron Odt [Zofran Odt 4 mg 4 mg PO Q4 #15 tab 01/11/17 (*)] AMITRIPTYLINE HCL [Amitriptyline 02/12/17 100 mg] Ondansetron Odt [Zofran Odt 4 mg 4 mg PO Q6 PRN #12 tab 02/12/17 (*)] Promethazine HCl [Phenergan 25mg 25 mg PO Q8 PRN #12 tab 02/12/17 (*)] clonazePAM [klonoPIN (*)] 1 mg PO BID PRN #8 tab 02/12/17 hydrOXYzine HCL [hydrOXYzine HCL 02/12/17 (RX)] Medical Decision Making ED Course/Re-evaluation: 31-year-old female seen in the emergency department on numerous occasions with panic attacks as well as an recurrent vomiting. Per the patient, she no longer smokes marijuana and she is being followed at [facility] by Dr. Muro as well as a therapist to manage her medications. Her primary complaint today is of significant panic disorder and she is hyperventilating on arrival. She recently was started on amitriptyline as well as Wellbutrin. Patient had IV established received normal saline. Her bicarbonate is 17, otherwise her labs are largely unremarkable. She received Reglan and Phenergan for nausea, ketamine for pain, and ativan for anxiety. Patient improved with meds andn fluids. She will be discharged with a short course of klonopin for severe anxiety and will follow up with Dr Muro at [facility] without fail on monday. Differential Diagnosis: Differential diagnosis of the patient's nausea and vomiting was considered including but not limited to gastroenteritis, gastritis, cyclic vomiting, cannabinoid hyperemesis syndrome, anxiety, panic attack, withdrawal symptoms, intraabdominal processes including appendicitis, pancreatitis, bowel obstruction and medication side effect. - Data Points Laboratory Results: Laboratory Results 02/12/17 08:30 02/12/17 08:30 02/12/17 02/12/17 02/12/17 10:45 08:30 08:30 WBC RBC Hgb Hct MCV MCH MCHC RDW Plt Count MPV Neut % (Auto) Lymph % (Auto) [place] % (Auto) Eos % (Auto) Baso % (Auto) Nucleat RBC Rel Count Absolute Neuts (auto) Absolute Lymphs (auto) Absolute Monos (auto) Absolute Eos (auto) Absolute Basos (auto) Absolute Nucleated RBC Immature Gran % Immature Gran # Sodium 138 mEq/L mEq/L (134-144) Potassium 4.6 mEq/L mEq/L (3.5-5.2) Chloride 105 mEq/L mEq/L (97-110) Carbon Dioxide 17 mEq/l L mEq/l (22-31) Anion Gap 16 mEq/L mEq/L (8-16) BUN 16 mg/dL mg/dL (7-23) Creatinine 1.0 mg/dL mg/dL (0.6-1.0) Estimated GFR > 60 Glucose 120 mg/dL H mg/dL (70-100) Calcium 9.8 mg/dL mg/dL (8.5-10.4) Beta HCG, Qual NEGATIVE Urine Color PALE YELLOW Urine Appearance CLEAR Urine pH 6.0 (5.0-7.5) Ur Specific [place] 1.010 (1.002-1.030) Urine Protein NEGATIVE (NEGATIVE) Urine Ketones TRACE H (NEGATIVE) Urine Blood NEGATIVE (NEGATIVE) Urine Nitrate NEGATIVE (NEGATIVE) Urine Bilirubin NEGATIVE (NEGATIVE) Urine Urobilinogen 0.2 EU EU (0.2-1.0) Ur Leukocyte Esterase NEGATIVE (NEGATIVE) Urine RBC 1-3 /hpf /hpf (0-3) Urine WBC NONE SEEN /hpf /hpf (0-3) Ur Epithelial Cells 1+ /lpf /lpf (NONE-1+) Urine Bacteria 1+ /hpf H /hpf (NONE SEEN) Urine Yeast OCCASIONAL /hpf H /hpf (NONE SEEN) Urine Glucose NEGATIVE (NEGATIVE) Urine Opiates Screen NEGATIVE (NEGATIVE) Urine Barbiturates NEGATIVE (NEGATIVE) Ur Phencyclidine Scrn NEGATIVE (NEGATIVE) Ur Amphetamine Screen NEGATIVE (NEGATIVE) U Benzodiazepines Scrn NON-NEGATIVE H (NEGATIVE) Urine Cocaine Screen NEGATIVE (NEGATIVE) U Marijuana (THC) Screen NON-NEGATIVE H (NEGATIVE) 02/12/17 08:30 WBC 12.27 10^3/uL H 10^3/uL (3.80-9.50) RBC 5.22 10^6/uL 10^6/uL (4.18-5.33) Hgb 16.5 g/dL H g/dL (12.6-16.3) Hct 47.1 % H % (38.0-47.0) MCV 90.2 fL fL (81.5-99.8) MCH 31.6 pg pg (27.9-34.1) MCHC 35.0 g/dL g/dL (32.4-36.7) RDW 12.2 % % (11.5-15.2) Plt Count 261 10^3/uL 10^3/uL (150-400) MPV 11.6 fL fL (8.7-11.7) Neut % (Auto) 72.5 % % (39.3-74.2) Lymph % (Auto) 18.4 % % (15.0-45.0) [place] % (Auto) 4.5 % % (4.5-13.0) Eos % (Auto) 3.2 % % (0.6-7.6) Baso % (Auto) 1.0 % % (0.3-1.7) Nucleat RBC Rel Count 0.0 % % (0.0-0.2) Absolute Neuts (auto) 8.90 10^3/uL H 10^3/uL (1.70-6.50) Absolute Lymphs (auto) 2.26 10^3/uL 10^3/uL (1.00-3.00) Absolute Monos (auto) 0.55 10^3/uL 10^3/uL (0.30-0.80) Absolute Eos (auto) 0.39 10^3/uL 10^3/uL (0.03-0.40) Absolute Basos (auto) 0.12 10^3/uL H 10^3/uL (0.02-0.10) Absolute Nucleated RBC 0.00 10^3/uL 10^3/uL (0-0.01) Immature Gran % 0.4 % % (0.0-1.1) Immature Gran # 0.05 10^3/uL 10^3/uL (0.00-0.10) Sodium Potassium Chloride Carbon Dioxide Anion Gap BUN Creatinine Estimated GFR Glucose Calcium Beta HCG, Qual Urine Color Urine Appearance Urine pH Ur Specific [place] Urine Protein Urine Ketones Urine Blood Urine Nitrate Urine Bilirubin Urine Urobilinogen Ur Leukocyte Esterase Urine RBC Urine WBC Ur Epithelial Cells Urine Bacteria Urine Yeast Urine Glucose Urine Opiates Screen Urine Barbiturates Ur Phencyclidine Scrn Ur Amphetamine Screen U Benzodiazepines Scrn Urine Cocaine Screen U Marijuana (THC) Screen Medications Given: Discontinued Medications Clonazepam (Klonopin) 1 mg PO EDNOW ONE Stop: 02/12/17 10:02 Last Admin: 02/12/17 11:00 Dose: 1 mg Diphenhydramine HCl (Benadryl Injection) 25 mg IVP EDNOW ONE Stop: 02/12/17 09:01 Last Admin: 02/12/17 09:15 Dose: 25 mg Sodium Chloride (Ns) 1,000 mls @ 0 mls/hr IV ONCE ONE; Wide Open PRN Reason: Protocol Stop: 02/12/17 08:33 Last Admin: 02/12/17 08:37 Dose: 1,000 mls Ketamine HCl (Ketamine) 12.2 mg 0.2 mg/kg (12.2 mg) IVP EDNOW ONE Stop: 02/12/17 09:01 Last Admin: 02/12/17 09:16 Dose: 12.2 mg Lorazepam (Ativan Injection) 1 mg IVP EDNOW ONE Stop: 02/12/17 08:33 Last Admin: 02/12/17 08:37 Dose: 1 mg Lorazepam (Ativan Injection) 1 mg IVP EDNOW ONE Stop: 02/12/17 09:09 Last Admin: 02/12/17 09:48 Dose: 1 mg Metoclopramide HCl (Reglan Injection) 10 mg IVP EDNOW ONE Stop: 02/12/17 09:01 Last Admin: 02/12/17 09:15 Dose: 10 mg Ondansetron HCl (Zofran) 4 mg IVP EDNOW ONE Stop: 02/12/17 09:02 Last Admin: 02/12/17 09:14 Dose: 4 mg Promethazine HCl (Phenergan) 25 mg IVP EDNOW ONE Stop: 02/12/17 08:33 Last Admin: 02/12/17 08:38 Dose: 25 mg Departure - Departure Disposition: Home, Routine, Self-Care Clinical Impression: Anxiety Cyclic vomiting syndrome Qualifiers: Vomiting Intractability: non-intractable Nausea presence: with nausea Qualified Code(s): G43.A0 - Cyclical vomiting, not intractable Condition: Good Instructions: Acute Nausea and Vomiting (ED), Anxiety (ED) Additional Instructions: Follow up on Monday with both your primary care physician, Dr. Muro at [facility] as well as your therapist. You received a prescription for Klonopin. Please discuss this medication with your primary care physician and your therapist. I am reluctant to provide further Klonopin from the emergency department, this should be discussed with your PCP and your therapist. You may use Phenergan or Zofran as needed for nausea and vomiting. Referrals: [facility],. [Primary Care Provider] - As per Instructions Stand Alone Forms: Work Excuse Prescriptions: clonazePAM [klonoPIN (*)] 1 mg PO BID PRN #8 tab PRN Reason: Anxiety Ondansetron Odt [Zofran Odt 4 mg (*)] 4 mg PO Q6 PRN #12 tab PRN Reason: nausea Promethazine HCl [Phenergan 25mg (*)] 25 mg PO Q8 PRN #12 tab PRN Reason: nausea, vomiting
[2017-02-12] MEDS ORDERED: LORazepam 2 MG/ML INJ IVP ONE ×2 (08:32→09:08)
[2017-02-12] MEDS ORDERED: PROMETHAZINE HCL 25 MG/ML INJ IVP ONE (08:32)
[2017-02-12] MEDS ORDERED: NS 1,000 ML IV ONE (08:32)
[2017-02-12 08:38] LABS: % IMMATURE GRANULYOCYTES 0.4 % (0.0-1.1); ABSOLUTE IMMATURE GRANULOCYTES 0.05 10^3/uL (0.00-0.10); ADD DIFF? NO; ADD MORPH? NO; ADD SCAN? NO; ATYPICAL LYMPHOCYTE FLAG 0 (0-99); FRAGMENT RBC FLAG 0 (0-99); HEMATOCRIT 47.1 % (38.0-47.0); HEMOGLOBIN 16.5 g/dL (12.6-16.3); LEFT SHIFT FLG 0 (0-99); LIPEMIA HEMOLYSIS FLAG 90 (0-99); MEAN CELL HEMOGLOBIN 31.6 pg (27.9-34.1); MEAN CELL VOLUME 90.2 fL (81.5-99.8); MEAN PLATELET VOLUME 11.6 fL (8.7-11.7); PLATELET CLUMPS FLAG 0 (0-99); PLATELET COUNT 261 10^3/uL (150-400); RED BLOOD CELL COUNT 5.22 10^6/uL (4.18-5.33); RED CELL DISTRIBUTION WIDTH 12.2 % (11.5-15.2)
[2017-02-12 08:47] LABS: ANION GAP 16 mEq/L (8-16); CALCIUM 9.8 mg/dL (8.5-10.4); CARBON DIOXIDE 17 mEq/l (22-31); CHLORIDE 105 mEq/L (97-110); GLOMERULAR FILTRATION RATE > 60; GLUCOSE 120 mg/dL (70-100); SODIUM 138 mEq/L (134-144)
[2017-02-12 08:54] LABS: POTASSIUM 4.6 mEq/L (3.5-5.2)
[2017-02-12] MEDS ORDERED: METOCLOPRAMIDE 10 MG/2 ML VIAL IVP ONE (09:00)
[2017-02-12] MEDS ORDERED: KETAMINE 100 MG/10 ML SYR IVP ONE (09:00)
[2017-02-12] MEDS ORDERED: ONDANSETRON 4 MG/2 ML VIAL IVP ONE (09:01)
[2017-02-12] MEDS ORDERED: clonazePAM 1 MG TAB PO ONE (10:01)
[2017-02-12 10:59] LABS: COLOR PALE YELLOW; LEUKOCYTE ESTERASE,URINE NEGATIVE (NEGATIVE); NITRITE,URINE NEGATIVE (NEGATIVE)
[2017-02-12 11:17] LABS: BACTERIA 1+ /hpf (NONE SEEN); WBC,URINE NONE SEEN /hpf (0-3)
[2017-02-12 11:18] LABS: YEAST OCCASIONAL /hpf (NONE SEEN)
[2017-02-12 11:29] VITALS: BP 121/79; PULSE 76; RESP 18; O2SAT 96
== END 2017-02-12 11:20 | disposition home or self-care (01) ==
LOC: CED 08:05
DX: G43.A0 Cyclical vomiting, in migraine, not intractable (principal); F41.9 Anxiety disorder, unspecified; E86.9 Volume depletion, unspecified; Z87.891 Personal history of nicotine dependence
CPT/HCPCS: 80048-PO; 80307-PO; 81003-PO; 81015-PO; 84703-PO; 85025-PO; 96374; J1200; J2060; J2405; J2550; J2765

== ENCOUNTER 2017-04-01 07:55 | Emergency (ER) | payer MEDICAID ==
[2017-04-01] MEDS ORDERED: HALOPERIDOL LACT 5 MG/ML INJ IVP ONE ×2 (08:11→09:33)
[2017-04-01] MEDS ORDERED: NS 1,000 ML IV ONE (08:12)
--- NOTE | 2017-04-01 08:15 | EDPHY ---
H & P Time Seen by Provider: 04/01/17 08:05 HPI/ROS: CHIEF COMPLAINT: Cyclic vomiting HISTORY OF PRESENT ILLNESS: Patient is a 31-year-old female with a history of cyclic vomiting and marijuana abuse who comes to the emergency department complaining of vomiting and diarrhea that began 48 hours ago. No fever. No travel. No blood. She has been taking Klonopin at home with some success but states that she cannot keep it down today. She denies risk of . No urinary symptoms. REVIEW OF SYSTEMS: Constitutional: denies: chills, fever, recent illness, recent injury EENTM: denies: blurred vision, double vision, nose congestion Respiratory: denies: cough, shortness of breath Cardiac: denies: chest pain, irregular heart rate, lightheadedness, palpitations Gastrointestinal/Abdominal: See HPI Genitourinary: denies: dysuria, frequency, hematuria, pain Musculoskeletal: denies: joint pain, muscle pain Skin: denies: lesions, rash, jaundice, bruising Neurological: denies: headache, numbness, paresthesia, tingling, dizziness, weakness Hematologic/Lymphatic: denies: blood clots, easy bleeding, easy bruising Immunologic/allergic: denies: HIV/AIDS, transplant EXAM: GENERAL: Well-appearing, well-nourished and in no acute distress. HEAD: Atraumatic, normocephalic. EYES: Pupils equal round and reactive to light, extraocular movements intact, sclera anicteric, conjunctiva are normal. ENT: TMs normal, nares patent, oropharynx clear without exudates. Moist mucous membranes. NECK: Normal range of motion, supple without lymphadenopathy or JVD. LUNGS: Breath sounds clear to auscultation bilaterally and equal. No wheezes rales or rhonchi. HEART: Regular rate and rhythm without murmurs, rubs or gallops. ABDOMEN: Crampy pain, nontender BACK: No CVA tenderness, no spinal tenderness, step-offs or deformities EXTREMITIES: Normal range of motion, no pitting or edema. No clubbing or cyanosis. NEUROLOGICAL: Cranial nerves II through XII grossly intact. Normal speech, normal gait. 5/5 strength, normal movement in all extremities, normal sensation PSYCH: Normal mood, normal affect. SKIN: Warm, dry, normal turgor, no visible rashes or lesions. Source: Patient Exam Limitations: No limitations - Medical/Surgical History Hx Asthma: No Hx Chronic Respiratory Disease: No Hx Diabetes: No Hx Cardiac Disease: No Hx Renal Disease: No Hx Cirrhosis: No Hx Alcoholism: No Hx HIV/AIDS: No Hx Splenectomy or Spleen Trauma: No Other PMH: PSHx: appy. PMHx: anxiety, stomach ulcers, irritable bowel syndrome. with 1 tab,cyclic vomiting,marijuana use - Social History Smoking Status: Former smoker Alcohol Use: Sober Drug Use: None Constitutional: Initial Vital Signs Temperature (C) 36.6 C 04/01/17 08:06 Heart Rate 88 04/01/17 08:06 Respiratory Rate 20 04/01/17 08:06 Blood Pressure 154/82 H 04/01/17 08:06 O2 Sat (%) 95 04/01/17 08:06 O2 Delivery Mode Room Air Allergies/Adverse Reactions: No Known Allergies Allergy (Unverified 04/01/17 09:47) Home Medications: Medication Instructions Recorded Ondansetron Odt [Zofran Odt 4 mg 4 mg PO Q4 #15 tab 01/11/17 (*)] AMITRIPTYLINE HCL [Amitriptyline 02/12/17 100 mg] Ondansetron Odt [Zofran Odt 4 mg 4 mg PO Q6 PRN #12 tab 02/12/17 (*)] Promethazine HCl [Phenergan 25mg 25 mg PO Q8 PRN #12 tab 02/12/17 (*)] clonazePAM [klonoPIN (*)] 1 mg PO BID PRN #8 tab 02/12/17 hydrOXYzine HCL [hydrOXYzine HCL 02/12/17 (RX)] clonazePAM [klonoPIN (*)] 1 mg PO BID #10 tab 04/01/17 Medical Decision Making ED Course/Re-evaluation: 8:15 a.m. the patient states that Haldol makes her feel crazy. We discussed this is likely the best medication for her. Will treat her with Benadryl which has worked before. During her last visit she had have several rounds of multiple medications which could be potentially more dangerous. Patient did require other medications and a 2nd dose of Haldol but is now tolerating p.o.. 10:40 a.m. the patient rang the obrien and is asking to go home. She is asking for a note for work. Abdominal exam remains benign. Her lab work is reassuring. She has done well with the Haldol and will remove it from her allergy list. She is also asking for a refill of her Klonopin. Differential Diagnosis: Partial list of the Differential diagnosis considered include but were not limited to; cyclic vomiting, substance abuse, gastroenteritis and although unlikely based on the history and physical exam, I also considered obstruction, ischemia, volvulus, biliary disease, , UTI. I discussed these differential diagnoses and the plan with the patient as well as the usual and expected course. The patient understands that the diagnosis is provisional and that in medicine we are not always correct and that further workup is often warranted. Usual and customary warnings were given. All of the patient's questions were answered. The patient was instructed to return to the emergency department should the symptoms at all worsen or return, otherwise to followup with the physician as we discussed. - Data Points Laboratory Results: Laboratory Results 04/01/17 08:15 04/01/17 08:15 04/01/17 04/01/17 04/01/17 08:15 08:15 08:15 WBC 8.41 10^3/uL 10^3/uL (3.80-9.50) RBC 5.19 10^6/uL 10^6/uL (4.18-5.33) Hgb 16.5 g/dL H g/dL (12.6-16.3) Hct 46.2 % % (38.0-47.0) MCV 89.0 fL fL (81.5-99.8) MCH 31.8 pg pg (27.9-34.1) MCHC 35.7 g/dL g/dL (32.4-36.7) RDW 12.1 % % (11.5-15.2) Plt Count 253 10^3/uL 10^3/uL (150-400) MPV 11.6 fL fL (8.7-11.7) Neut % (Auto) 57.7 % % (39.3-74.2) Lymph % (Auto) 31.3 % % (15.0-45.0) [place] % (Auto) 4.9 % % (4.5-13.0) Eos % (Auto) 4.8 % % (0.6-7.6) Baso % (Auto) 1.1 % % (0.3-1.7) Nucleat RBC Rel Count 0.0 % % (0.0-0.2) Absolute Neuts (auto) 4.86 10^3/uL 10^3/uL (1.70-6.50) Absolute Lymphs (auto) 2.63 10^3/uL 10^3/uL (1.00-3.00) Absolute Monos (auto) 0.41 10^3/uL 10^3/uL (0.30-0.80) Absolute Eos (auto) 0.40 10^3/uL 10^3/uL (0.03-0.40) Absolute Basos (auto) 0.09 10^3/uL 10^3/uL (0.02-0.10) Absolute Nucleated RBC 0.00 10^3/uL 10^3/uL (0-0.01) Immature Gran % 0.2 % % (0.0-1.1) Immature Gran # 0.02 10^3/uL 10^3/uL (0.00-0.10) Sodium 141 mEq/L mEq/L (134-144) Potassium 4.0 mEq/L mEq/L (3.5-5.2) Chloride 107 mEq/L mEq/L (97-110) Carbon Dioxide 19 mEq/l L mEq/l (22-31) Anion Gap 15 mEq/L mEq/L (8-16) BUN 11 mg/dL mg/dL (7-23) Creatinine 0.9 mg/dL mg/dL (0.6-1.0) Estimated GFR > 60 Glucose 152 mg/dL H mg/dL (70-100) Calcium 10.2 mg/dL mg/dL (8.5-10.4) Total Bilirubin 0.9 mg/dL mg/dL (0.1-1.4) Conjugated Bilirubin 0.4 mg/dL mg/dL (0.0-0.5) Unconjugated Bilirubin 0.5 mg/dL mg/dL (0.0-1.1) AST 21 IU/L IU/L (14-46) ALT 65 IU/L H IU/L (9-52) Alkaline Phosphatase 66 IU/L IU/L (38-126) Total Protein 7.2 g/dL g/dL (6.3-8.2) Albumin 4.6 g/dL g/dL (3.5-5.0) Lipase 78 IU/L IU/L (23-300) Beta HCG, Qual NEGATIVE Medications Given: Discontinued Medications Diphenhydramine HCl (Benadryl Injection) 50 mg IVP EDNOW ONE Stop: 04/01/17 08:11 Last Admin: 04/01/17 08:42 Dose: 50 mg Haloperidol Lactate (Haldol Injection) 5 mg IVP EDNOW ONE Stop: 04/01/17 08:12 Last Admin: 04/01/17 08:43 Dose: 5 mg Haloperidol Lactate (Haldol Injection) 2.5 mg IVP EDNOW ONE Stop: 04/01/17 09:34 Last Admin: 04/01/17 09:45 Dose: 2.5 mg Sodium Chloride (Ns) 1,000 mls @ 0 mls/hr IV EDNOW ONE; Wide Open PRN Reason: Protocol Stop: 04/01/17 08:13 Last Admin: 04/01/17 08:42 Dose: 1,000 mls Lorazepam (Ativan Injection) 1 mg IVP EDNOW ONE Stop: 04/01/17 08:57 Last Admin: 04/01/17 09:07 Dose: 1 mg Departure - Departure Disposition: Home, Routine, Self-Care Clinical Impression: Cyclic vomiting syndrome Qualifiers: Vomiting Intractability: non-intractable Nausea presence: with nausea Qualified Code(s): G43.A0 - Cyclical vomiting, not intractable Condition: Fair Instructions: Abdominal Pain (ED) Referrals: ROSANA DYKES,Radha [Primary Care Provider] - As per Instructions Stand Alone Forms: Work Excuse Prescriptions: clonazePAM [klonoPIN (*)] 1 mg PO BID #10 tab
[2017-04-01 08:19] VITALS: TEMP 98
[2017-04-01 08:23] LABS: % IMMATURE GRANULYOCYTES 0.2 % (0.0-1.1); ABSOLUTE IMMATURE GRANULOCYTES 0.02 10^3/uL (0.00-0.10); ADD DIFF? NO; ADD MORPH? NO; ADD SCAN? NO; ATYPICAL LYMPHOCYTE FLAG 0 (0-99); FRAGMENT RBC FLAG 0 (0-99); HEMATOCRIT 46.2 % (38.0-47.0); HEMOGLOBIN 16.5 g/dL (12.6-16.3); LEFT SHIFT FLG 0 (0-99); LIPEMIA HEMOLYSIS FLAG 90 (0-99); MEAN CELL HEMOGLOBIN 31.8 pg (27.9-34.1); MEAN CELL HEMOGLOBIN CONCENTR. 35.7 g/dL (32.4-36.7); MEAN PLATELET VOLUME 11.6 fL (8.7-11.7); PLATELET CLUMPS FLAG 0 (0-99); PLATELET COUNT 253 10^3/uL (150-400); RED BLOOD CELL COUNT 5.19 10^6/uL (4.18-5.33); RED CELL DISTRIBUTION WIDTH 12.1 % (11.5-15.2)
[2017-04-01 08:40] LABS: ALANINE AMINOTRANSFERASE 65 IU/L (9-52); ALBUMIN 4.6 g/dL (3.5-5.0); ALKALINE PHOSPHATASE 66 IU/L (38-126); ANION GAP 15 mEq/L (8-16); ASPARTATE AMINOTRANSFERASE 21 IU/L (14-46); BILIRUBIN,TOTAL 0.9 mg/dL (0.1-1.4); BILIRUBIN-CONJUGATED 0.4 mg/dL (0.0-0.5); BILIRUBIN-UNCONJUGATED 0.5 mg/dL (0.0-1.1); CALCIUM 10.2 mg/dL (8.5-10.4); CARBON DIOXIDE 19 mEq/l (22-31); CHLORIDE 107 mEq/L (97-110); CREATININE 0.9 mg/dL (0.6-1.0); GLOMERULAR FILTRATION RATE > 60; GLUCOSE 152 mg/dL (70-100); SODIUM 141 mEq/L (134-144); TOTAL PROTEIN 7.2 g/dL (6.3-8.2)
[2017-04-01] MEDS ORDERED: LORazepam 2 MG/ML INJ IVP ONE (08:56)
[2017-04-01 09:08] VITALS: RESP 18
[2017-04-01 10:55] VITALS: BP 122/67; PULSE 74; O2SAT 93
== END 2017-04-01 10:54 | disposition home or self-care (01) ==
LOC: CED 07:55
DX: G43.A0 Cyclical vomiting, in migraine, not intractable (principal); E86.9 Volume depletion, unspecified; Z87.891 Personal history of nicotine dependence
CPT/HCPCS: 80048-PO; 80076-PO; 83690-PO; 84703-PO; 85025-PO; 96374; J1200; J2060

== ENCOUNTER 2017-04-24 09:53 | Emergency (ER) | payer MEDICAID ==
--- NOTE | 2017-04-24 10:15 | EDPHY ---
H & P Time Seen by Provider: 04/24/17 10:13 HPI/ROS: This patient presents with hyperemesis. She has a history of cyclic hyperemesis thought to be secondary to frequent marijuana use and her symptoms started few hours prior to arrival with frequent vomiting. She reports generalized abdominal cramping that started after the vomiting and is 5/10 intensity generalized in location and nonradiating. She has some tremors associated with her symptoms which is typical for her. She has been unable to tolerate any p.o. fluids since the onset of her symptoms. She tried a sublingual Zofran ODT without relief of her symptoms and came in for evaluation. ROS: Constitutional: No fevers. No significant fatigue. HEENT: Mild coryza recently. No other HEENT complaints Pulmonary: No cough shortness of breath Cardiovascular: She reports mild lightheadedness shortly prior to arrival while standing up that improves when she lies down. No chest pain. GI: As per HPI. No hematemesis. Normal bowel movements recently. : Last menstrual period was a few days ago.-normal timing Integumentary: No rash or pallor in Endocrine: No complaints Neuro: No complaints Complete review of symptoms is otherwise negative. Past Medical/Surgical History: Cyclic hyperemesis Social History: The patient reports that she has cut back on her marijuana use to once every few days down from multiple times a day. Occasional alcohol but none recently. She is accompanied by her boyfriend who drove her here by private vehicle for further evaluation. Smoking Status: Former smoker Physical Exam: Vital signs are normal. General Appearance: Alert, no distress. Eyes: Pupils equal and round no pallor or injection. ENT, Mouth: Mucous membranes dry. Respiratory: There are no retractions, lungs are clear to auscultation. Cardiovascular: Regular rate and rhythm. Gastrointestinal: Abdomen is soft and nontender, no masses, bowel sounds normal. Neurological: GCS 15 without focal deficits. She does have a fine tremor throughout initially. Skin: Warm and dry, no rashes. Musculoskeletal: Neck is supple nontender. Extremities are symmetrical, full range of motion. Psychiatric: Anxious. Her rate of speech is normal that she maintains logical thought content DIFFERENTIAL DIAGNOSIS: After history and physical exam differential diagnosis was considered for hyperemesis, dehydration, rule out metabolic disarray Constitutional: Initial Vital Signs Temperature (C) 36.6 C 04/24/17 09:59 Heart Rate 77 04/24/17 09:59 Respiratory Rate 20 04/24/17 09:59 Blood Pressure 124/90 H 04/24/17 09:59 O2 Sat (%) 99 04/24/17 09:59 O2 Delivery Mode Room Air Allergies/Adverse Reactions: No Known Allergies Allergy (Unverified 04/01/17 09:47) Home Medications: Medication Instructions Recorded Ondansetron Odt [Zofran Odt 4 mg 4 mg PO Q4 #15 tab 01/11/17 (*)] AMITRIPTYLINE HCL [Amitriptyline 02/12/17 100 mg] Ondansetron Odt [Zofran Odt 4 mg 4 mg PO Q6 PRN #12 tab 02/12/17 (*)] Promethazine HCl [Phenergan 25mg 25 mg PO Q8 PRN #12 tab 02/12/17 (*)] clonazePAM [klonoPIN (*)] 1 mg PO BID PRN #8 tab 02/12/17 hydrOXYzine HCL [hydrOXYzine HCL 02/12/17 (RX)] clonazePAM [klonoPIN (*)] 1 mg PO BID #10 tab 04/01/17 Metoclopramide [Reglan 5 mg (*)] 5 mg PO Q6 PRN #10 tab 04/24/17 MDM/Departure - MDM Medications Given: Discontinued Medications Diphenhydramine HCl (Benadryl Injection) 50 mg IVP EDNOW ONE Stop: 04/24/17 10:19 Last Admin: 04/24/17 10:26 Dose: Not Given Haloperidol Lactate (Haldol Injection) 5 mg IVP EDNOW ONE Stop: 04/24/17 10:24 Last Admin: 04/24/17 10:31 Dose: 5 mg Haloperidol Lactate (Haldol Injection) 2.5 mg IVP EDNOW ONE Stop: 04/24/17 11:39 Last Admin: 04/24/17 12:11 Dose: 2.5 mg Sodium Chloride (Ns) 1,000 mls @ 0 mls/hr IV EDNOW ONE; Wide Open PRN Reason: Protocol Stop: 04/24/17 10:18 Last Admin: 04/24/17 10:19 Dose: 1,000 mls Sodium Chloride (Ns) 1,000 mls @ 0 mls/hr IV EDNOW ONE; Wide Open PRN Reason: Protocol Stop: 04/24/17 11:13 Last Admin: 04/24/17 11:37 Dose: 1,000 mls Lorazepam (Ativan Injection) 1 mg IVP EDNOW ONE Stop: 04/24/17 10:24 Last Admin: 04/24/17 10:30 Dose: 1 mg ED Course/Re-evaluation: Review of labs reveals mild leukocytosis and metabolic findings consistent with her dehydration. IV normal saline bolus x2 L Benadryl 50 mg IV Haldol 5 mg IV with Ativan 1 mg IV Haldol repeated at 2.5 mg dose Patient felt improved with resolution of vomiting. She tolerated p. o. intake thereafter without emesis. Encouraged the patient to practice absence from her marijuana reminding her the correlation between THC building up and adipose tissue contributing hyperemesis. Discussion: Marijuana related hyperemesis improved with treatment. Patient also dehydration but is improved at the time of discharge tolerating p.o. intake. No evidence of significant associated metabolic disarray - Depart Disposition: Home, Routine, Self-Care Clinical Impression: Dehydration Hyperemesis Qualifiers: Vomiting type: cyclical vomiting Nausea presence: with nausea Qualified Code(s) : G43.A1 - Cyclical vomiting, intractable Condition: Good Instructions: Acute Nausea and Vomiting (ED) Additional Instructions: Diagnosis: Cyclical vomiting 2. Dehydration Plan: Reglan if needed for nausea Zofran at that time if needed for vomiting Return for any significant worsening despite the treatment plan. Follow up primary care physician for any ongoing symptoms Return for any significant worsening despite the treatment plan Stand Alone Forms: Work Excuse Prescriptions: Metoclopramide [Reglan 5 mg (*)] 5 mg PO Q6 PRN #10 tab PRN Reason: nausea Referrals: Unknown,Unknown [Primary Care Provider] - As per Instructions
[2017-04-24] MEDS ORDERED: NS 1,000 ML IV ONE ×2 (10:17→11:12)
[2017-04-24] MEDS ORDERED: HALOPERIDOL LACT 5 MG/ML INJ IVP ONE ×2 (10:23→11:38)
[2017-04-24] MEDS ORDERED: LORazepam 2 MG/ML INJ IVP ONE (10:23)
[2017-04-24 10:24] LABS: % IMMATURE GRANULYOCYTES 0.5 % (0.0-1.1); ABSOLUTE IMMATURE GRANULOCYTES 0.05 10^3/uL (0.00-0.10); ADD DIFF? NO; ADD MORPH? NO; ADD SCAN? NO; ATYPICAL LYMPHOCYTE FLAG 0 (0-99); FRAGMENT RBC FLAG 0 (0-99); HEMATOCRIT 46.9 % (38.0-47.0); HEMOGLOBIN 16.8 g/dL (12.6-16.3); LEFT SHIFT FLG 0 (0-99); LIPEMIA HEMOLYSIS FLAG 90 (0-99); MEAN CELL HEMOGLOBIN 31.7 pg (27.9-34.1); MEAN CELL HEMOGLOBIN CONCENTR. 35.8 g/dL (32.4-36.7); MEAN CELL VOLUME 88.5 fL (81.5-99.8); MEAN PLATELET VOLUME 11.5 fL (8.7-11.7); PLATELET CLUMPS FLAG 0 (0-99); PLATELET COUNT 296 10^3/uL (150-400); RED CELL DISTRIBUTION WIDTH 12.2 % (11.5-15.2)
[2017-04-24 10:58] LABS: ANION GAP 22 mEq/L (8-16); CALCIUM 10.5 mg/dL (8.5-10.4); CARBON DIOXIDE 15 mEq/l (22-31); CHLORIDE 105 mEq/L (97-110); CREATININE 0.8 mg/dL (0.6-1.0); GLOMERULAR FILTRATION RATE > 60; GLUCOSE 167 mg/dL (70-100); POTASSIUM 4.1 mEq/L (3.5-5.2); SODIUM 142 mEq/L (134-144)
[2017-04-24 12:54] VITALS: BP 127/91; PULSE 93; RESP 16; TEMP 98.8; O2SAT 98
== END 2017-04-24 12:54 | disposition home or self-care (01) ==
LOC: CED 09:53
DX: E86.0 Dehydration (principal); G43.A1 Cyclical vomiting, in migraine, intractable; E86.9 Volume depletion, unspecified; Z87.891 Personal history of nicotine dependence
CPT/HCPCS: 80048-PO; 84703-PO; 85025-PO; 96374; J1200; J2060

== ENCOUNTER 2017-05-05 08:55 | Emergency (ER) | payer MEDICAID ==
[2017-05-05] MEDS ORDERED: HALOPERIDOL LACT 5 MG/ML INJ IVP ONE (09:11)
[2017-05-05] MEDS ORDERED: METOCLOPRAMIDE 10 MG/2 ML VIAL IVP ONE (09:11)
[2017-05-05] MEDS ORDERED: NS 1,000 ML IV ONE (09:11)
[2017-05-05] MEDS ORDERED: LORazepam 2 MG/ML INJ IVP ONE (09:13)
[2017-05-05] MEDS ORDERED: LORazepam 2 MG/ML INJ ONE (09:14)
--- NOTE | 2017-05-05 09:16 | EDPHY ---
H & P Stated Complaint: this am started with vomiting and diarrhea Time Seen by Provider: 05/05/17 09:04 HPI/ROS: CHIEF COMPLAINT: Cyclic vomiting HISTORY OF PRESENT ILLNESS: The patient is a 32-year-old female with a history of drug abuse and cyclic vomiting. She is on Klonopin regularly but has not been able to take it this morning. She states that she began vomiting about 2 hr ago and has had severe persistent retching since that time. She has also had diarrhea which is fairly typical for her presentation. She has been here multiple times. She has not had a fever. She denies risk of . No urinary symptoms. She mentioned to triage that her stool was dark but denies this to me. She does have a history of peptic ulcer disease. REVIEW OF SYSTEMS: Constitutional: denies: chills, fever, recent illness, recent injury EENTM: denies: blurred vision, double vision, nose congestion Respiratory: denies: cough, shortness of breath Cardiac: denies: chest pain, irregular heart rate, lightheadedness, palpitations Gastrointestinal/Abdominal: denies: abdominal pain, diarrhea, nausea, vomiting, blood streaked stools Genitourinary: denies: dysuria, frequency, hematuria, pain Musculoskeletal: denies: joint pain, muscle pain Skin: denies: lesions, rash, jaundice, bruising Neurological: denies: headache, numbness, paresthesia, tingling, dizziness, weakness Hematologic/Lymphatic: denies: blood clots, easy bleeding, easy bruising Immunologic/allergic: denies: HIV/AIDS, transplant EXAM: GENERAL: Anxious, dry heaving HEAD: Atraumatic, normocephalic. EYES: Pupils equal round and reactive to light, extraocular movements intact, sclera anicteric, conjunctiva are normal. ENT: TMs normal, nares patent, oropharynx clear without exudates. Moist mucous membranes. NECK: Normal range of motion, supple without lymphadenopathy or JVD. LUNGS: Breath sounds clear to auscultation bilaterally and equal. No wheezes rales or rhonchi. HEART: Regular rate and rhythm without murmurs, rubs or gallops. ABDOMEN: Soft, nontender, normoactive bowel sounds. No guarding, no rebound. No masses appreciated. Rectal exam declined BACK: No CVA tenderness, no spinal tenderness, step-offs or deformities EXTREMITIES: Normal range of motion, no pitting or edema. No clubbing or cyanosis. NEUROLOGICAL: Cranial nerves II through XII grossly intact. Normal speech, normal gait. 5/5 strength, normal movement in all extremities, normal sensation PSYCH: Normal mood, normal affect. SKIN: Warm, dry, normal turgor, no visible rashes or lesions. Source: Patient Exam Limitations: No limitations - Personal History LMP (Females 10-55): 8-14 Days Ago Current Tetanus/Diphtheria Vaccine: Unsure - Medical/Surgical History Hx Asthma: No Hx Chronic Respiratory Disease: No Hx Diabetes: No Hx Cardiac Disease: No Hx Renal Disease: No Hx Cirrhosis: No Hx Alcoholism: No Hx HIV/AIDS: No Hx Splenectomy or Spleen Trauma: No Other PMH: PSHx: appy. PMHx: anxiety, stomach ulcers, irritable bowel syndrome. with 1 tab,cyclic vomiting,marijuana use - Family History Significant Family History: No pertinent family hx - Social History Smoking Status: Former smoker Alcohol Use: Sober Drug Use: None Constitutional: Initial Vital Signs Temperature (C) 36.6 C 05/05/17 08:59 Heart Rate 80 05/05/17 08:59 Respiratory Rate 18 05/05/17 08:59 Blood Pressure 136/89 H 05/05/17 08:59 O2 Sat (%) 98 05/05/17 08:59 O2 Delivery Mode Room Air Allergies/Adverse Reactions: No Known Allergies Allergy (Verified 05/05/17 09:02) Home Medications: Medication Instructions Recorded Ondansetron Odt [Zofran Odt 4 mg 4 mg PO Q4 #15 tab 01/11/17 (*)] AMITRIPTYLINE HCL [Amitriptyline 02/12/17 100 mg] Ondansetron Odt [Zofran Odt 4 mg 4 mg PO Q6 PRN #12 tab 02/12/17 (*)] Promethazine HCl [Phenergan 25mg 25 mg PO Q8 PRN #12 tab 02/12/17 (*)] clonazePAM [klonoPIN (*)] 1 mg PO BID PRN #8 tab 02/12/17 hydrOXYzine HCL [hydrOXYzine HCL 02/12/17 (RX)] clonazePAM [klonoPIN (*)] 1 mg PO BID #10 tab 04/01/17 Metoclopramide [Reglan 5 mg (*)] 5 mg PO Q6 PRN #10 tab 04/24/17 Medical Decision Making ED Course/Re-evaluation: The last 2 times she has done well with Haldol. Prior to that it was listed as an allergy. She states that it does make her feel anxious once she gets home. She is asking for benzodiazepines repeatedly and has been cautioned against using them. There is a case management note a few months ago when she was witnessed sticking her finger down her throat to induce vomiting. 10:30 a.m. the patient is sleeping. She is no longer retching. She is not anemic. She has received IV fluids and is taking p.o.. She is ready to be discharged. No episodes of diarrhea. I did discuss her case and frequent visits with case management who will investigate an attempt to establish a care plan. I am concerned about benzodiazepine abuse. The patient does have a care plan at [facility]. Differential Diagnosis: Partial list of the Differential diagnosis considered include but were not limited to; cyclic vomiting, substance abuse, gastroparesis, anxiety, withdrawal and although unlikely based on the history and physical exam, I also considered infection, hemorrhage, trauma. I discussed these differential diagnoses and the plan with the patient as well as the usual and expected course. The patient understands that the diagnosis is provisional and that in medicine we are not always correct and that further workup is often warranted. Usual and customary warnings were given. All of the patient's questions were answered. The patient was instructed to return to the emergency department should the symptoms at all worsen or return, otherwise to followup with the physician as we discussed. - Data Points Laboratory Results: Laboratory Results 05/05/17 09:35 05/05/17 09:35 05/05/17 05/05/17 05/05/17 09:35 09:35 09:35 WBC 13.98 10^3/uL H 10^3/uL (3.80-9.50) RBC 5.02 10^6/uL 10^6/uL (4.18-5.33) Hgb 15.5 g/dL g/dL (12.6-16.3) Hct 44.7 % % (38.0-47.0) MCV 89.0 fL fL (81.5-99.8) MCH 30.9 pg pg (27.9-34.1) MCHC 34.7 g/dL g/dL (32.4-36.7) RDW 12.4 % % (11.5-15.2) Plt Count 235 10^3/uL 10^3/uL (150-400) MPV 11.1 fL fL (8.7-11.7) Neut % (Auto) 82.0 % H % (39.3-74.2) Lymph % (Auto) 12.9 % L % (15.0-45.0) [place] % (Auto) 3.2 % L % (4.5-13.0) Eos % (Auto) 1.1 % % (0.6-7.6) Baso % (Auto) 0.4 % % (0.3-1.7) Nucleat RBC Rel Count 0.0 % % (0.0-0.2) Absolute Neuts (auto) 11.46 10^3/uL H 10^3/uL (1.70-6.50) Absolute Lymphs (auto) 1.80 10^3/uL 10^3/uL (1.00-3.00) Absolute Monos (auto) 0.45 10^3/uL 10^3/uL (0.30-0.80) Absolute Eos (auto) 0.16 10^3/uL 10^3/uL (0.03-0.40) Absolute Basos (auto) 0.05 10^3/uL 10^3/uL (0.02-0.10) Absolute Nucleated RBC 0.00 10^3/uL 10^3/uL (0-0.01) Immature Gran % 0.4 % % (0.0-1.1) Immature Gran # 0.06 10^3/uL 10^3/uL (0.00-0.10) Sodium 140 mEq/L mEq/L (134-144) Potassium 3.9 mEq/L mEq/L (3.5-5.2) Chloride 105 mEq/L mEq/L (97-110) Carbon Dioxide 16 mEq/l L mEq/l (22-31) Anion Gap 19 mEq/L H mEq/L (8-16) BUN 9 mg/dL mg/dL (7-23) Creatinine 0.9 mg/dL mg/dL (0.6-1.0) Estimated GFR > 60 Glucose 150 mg/dL H mg/dL (70-100) Calcium 9.4 mg/dL mg/dL (8.5-10.4) Beta HCG, Qual NEGATIVE Medications Given: Discontinued Medications Diphenhydramine HCl (Benadryl Injection) 25 mg IVP EDNOW ONE Stop: 05/05/17 09:12 Last Admin: 05/05/17 09:45 Dose: 25 mg Haloperidol Lactate (Haldol Injection) 5 mg IVP EDNOW ONE Stop: 05/05/17 09:12 Last Admin: 05/05/17 09:51 Dose: 5 mg Sodium Chloride (Ns) 1,000 mls @ 0 mls/hr IV EDNOW ONE; Wide Open PRN Reason: Protocol Stop: 05/05/17 09:12 Last Admin: 05/05/17 09:44 Dose: 1,000 mls Lorazepam (Ativan Injection) 1 mg IVP EDNOW ONE Stop: 05/05/17 09:14 Last Admin: 05/05/17 09:56 Dose: 1 mg Metoclopramide HCl (Reglan Injection) 10 mg IVP EDNOW ONE Stop: 05/05/17 09:12 Last Admin: 05/05/17 09:47 Dose: 10 mg Departure - Departure Disposition: Home, Routine, Self-Care Clinical Impression: Cyclical vomiting Qualifiers: Vomiting Intractability: non-intractable Nausea presence: with nausea Qualified Code(s): G43.A0 - Cyclical vomiting, not intractable Condition: Fair Instructions: Acute Nausea and Vomiting (ED) Referrals: Radha COOPER [Primary Care Provider] - As per Instructions Stand Alone Forms: Work Excuse
[2017-05-05 09:44] LABS: % IMMATURE GRANULYOCYTES 0.4 % (0.0-1.1); ABSOLUTE IMMATURE GRANULOCYTES 0.06 10^3/uL (0.00-0.10); ADD DIFF? NO; ADD MORPH? NO; ADD SCAN? NO; ATYPICAL LYMPHOCYTE FLAG 0 (0-99); FRAGMENT RBC FLAG 0 (0-99); HEMATOCRIT 44.7 % (38.0-47.0); HEMOGLOBIN 15.5 g/dL (12.6-16.3); LEFT SHIFT FLG 0 (0-99); LIPEMIA HEMOLYSIS FLAG 90 (0-99); MEAN CELL HEMOGLOBIN 30.9 pg (27.9-34.1); MEAN CELL HEMOGLOBIN CONCENTR. 34.7 g/dL (32.4-36.7); MEAN PLATELET VOLUME 11.1 fL (8.7-11.7); PLATELET CLUMPS FLAG 0 (0-99); PLATELET COUNT 235 10^3/uL (150-400); RED BLOOD CELL COUNT 5.02 10^6/uL (4.18-5.33); RED CELL DISTRIBUTION WIDTH 12.4 % (11.5-15.2)
[2017-05-05 09:57] LABS: ANION GAP 19 mEq/L (8-16); CALCIUM 9.4 mg/dL (8.5-10.4); CARBON DIOXIDE 16 mEq/l (22-31); CHLORIDE 105 mEq/L (97-110); CREATININE 0.9 mg/dL (0.6-1.0); GLOMERULAR FILTRATION RATE > 60; GLUCOSE 150 mg/dL (70-100); POTASSIUM 3.9 mEq/L (3.5-5.2); SODIUM 140 mEq/L (134-144)
[2017-05-05 10:54] VITALS: BP 124/72; PULSE 110; RESP 16; TEMP 99; O2SAT 99
--- NOTE | 2017-05-05 10:55 | ASMTCMCOM ---
CM Note CM Note Notes: I received a call from Karlo Darling at [facility] asking me to contact Jarad Uatsdin to request information on how they had been treating patient for her cyclic vomiting syndrome. Per Dr Darling, patient is a frequent visitor to the ED and informed him that she is not going to [facility] for treatment anymore. I called and spoke to Ivette, account executive healthcare in the [facility] ED who says that patient was seen there 12/12/16 and 02/10/17, both times refusing case management involvement. Ivette will fax MD notes from those visits to [facility] whose fax # is [phone] Date Signed: 05/05/2017 10:55 AM Electronically Signed By:Viviane Gonzalez RN
== END 2017-05-05 10:52 | disposition home or self-care (01) ==
LOC: CED 08:55
DX: G43.A0 Cyclical vomiting, in migraine, not intractable (principal); E86.9 Volume depletion, unspecified; Z87.891 Personal history of nicotine dependence
CPT/HCPCS: 80048-PO; 84703-PO; 85025-PO; 96374; J1200; J2060; J2765

== ENCOUNTER 2017-06-14 14:04 | Emergency (ER) | payer SELFPAY ==
--- NOTE | 2017-06-14 14:20 | EDPHY ---
H & P Time Seen by Provider: 06/14/17 14:16 HPI/ROS: Chief complaint. Vomiting HPI. 32-year-old female history of cyclic vomiting syndrome and anxiety presents emergency department with anxiety and vomiting. She says that the symptoms began today. She has bilateral low crampy abdominal pain especially with vomiting. No diarrhea. Similar symptoms previously. Normally uses Klonopin but states that she has been out of it. No chest discomfort or trouble breathing. She has carpopedal spasm and feels that she can't calm down. She tells me that the last several times that she has been given Haldol and it makes her feel worse after discharge and requests no Haldol. ROS Constitutional. Anxiety Eyes. no problems with vision ENT. no sore throat, no nasal drainage Cardiovascular. no chest pain Respiratory. no shortness of breath, no cough Abdominal. Vomiting and low abdominal pain . no problems urinating MS. Carpopedal spasm Skin. no rash Lymph. no swollen glands Neuro. no headache, no dizziness, no difficulty walking or with speech Past Medical/Surgical History: Anxiety, cyclic vomiting syndrome Social History: Single, nonsmoker, no alcohol Smoking Status: Former smoker Physical Exam: General Appearance: Alert well-developed female moderate distress vital signs are stable Eyes: Pupils equal and round no pallor or injection. ENT, Mouth: Mucous membranes are moist. Respiratory: There are no retractions, lungs are clear to auscultation. Cardiovascular: Regular rate and rhythm. Gastrointestinal: Abdomen is soft with mild bilateral low abdominal tenderness. No masses. Normal bowel sounds Neurological: Awake and alert, sensory and motor exams grossly normal. Skin: Warm and dry, no rashes. Musculoskeletal: Neck is supple nontender. Extremities carpopedal spasm both upper extremities Psychiatric: Anxiety Constitutional: Initial Vital Signs Temperature (C) 37.0 C 06/14/17 14:21 Heart Rate 73 06/14/17 14:21 Respiratory Rate 28 H 06/14/17 14:21 Blood Pressure 129/112 H 06/14/17 14:21 O2 Sat (%) 99 06/14/17 14:21 O2 Delivery Mode Room Air Allergies/Adverse Reactions: haloperidol [From Haldol] Allergy (Verified 06/14/17 14:20) Home Medications: Medication Instructions Recorded Ondansetron Odt [Zofran Odt 4 mg 4 mg PO Q4 #15 tab 01/11/17 (*)] AMITRIPTYLINE HCL [Amitriptyline 02/12/17 100 mg] Ondansetron Odt [Zofran Odt 4 mg 4 mg PO Q6 PRN #12 tab 02/12/17 (*)] Promethazine HCl [Phenergan 25mg 25 mg PO Q8 PRN #12 tab 02/12/17 (*)] clonazePAM [klonoPIN (*)] 1 mg PO BID PRN #8 tab 02/12/17 hydrOXYzine HCL [hydrOXYzine HCL 02/12/17 (RX)] clonazePAM [klonoPIN (*)] 1 mg PO BID #10 tab 04/01/17 Metoclopramide [Reglan 5 mg (*)] 5 mg PO Q6 PRN #10 tab 04/24/17 LORazepam [Ativan] 1 mg PO Q6-8PRN PRN #10 tab 06/14/17 Promethazine HCl [Phenergan 25mg 25 mg PO Q6-8PRN PRN #10 tab 06/14/17 (*)] Medical Decision Making Procedures: IV normal saline with target of 2 L. Benadryl, Reglan, Ativan, Zofran IV ED Course/Re-evaluation: Re-evaluation at 3:00 p.m.. Patient is still shaking. No vomiting. She is given Ativan 1 mg IV. Care Turn Over: Care to Dr. Meyer at 3:00 p.m. - Data Points Laboratory Results: Laboratory Results 06/14/17 14:36 06/14/17 14:36 06/14/17 06/14/17 06/14/17 14:36 14:36 14:36 WBC 15.74 10^3/uL H 10^3/uL (3.80-9.50) RBC 4.94 10^6/uL 10^6/uL (4.18-5.33) Hgb 15.5 g/dL g/dL (12.6-16.3) Hct 44.0 % % (38.0-47.0) MCV 89.1 fL fL (81.5-99.8) MCH 31.4 pg pg (27.9-34.1) MCHC 35.2 g/dL g/dL (32.4-36.7) RDW 12.2 % % (11.5-15.2) Plt Count 242 10^3/uL 10^3/uL (150-400) MPV 11.5 fL fL (8.7-11.7) Neut % (Auto) 90.3 % H % (39.3-74.2) Lymph % (Auto) 4.4 % L % (15.0-45.0) [place] % (Auto) 4.6 % % (4.5-13.0) Eos % (Auto) 0.1 % L % (0.6-7.6) Baso % (Auto) 0.2 % L % (0.3-1.7) Nucleat RBC Rel Count 0.0 % % (0.0-0.2) Absolute Neuts (auto) 14.20 10^3/uL H 10^3/uL (1.70-6.50) Absolute Lymphs (auto) 0.70 10^3/uL L 10^3/uL (1.00-3.00) Absolute Monos (auto) 0.73 10^3/uL 10^3/uL (0.30-0.80) Absolute Eos (auto) 0.01 10^3/uL L 10^3/uL (0.03-0.40) Absolute Basos (auto) 0.03 10^3/uL 10^3/uL (0.02-0.10) Absolute Nucleated RBC 0.00 10^3/uL 10^3/uL (0-0.01) Immature Gran % 0.4 % % (0.0-1.1) Immature Gran # 0.07 10^3/uL 10^3/uL (0.00-0.10) Sodium 142 mEq/L mEq/L (135-145) Potassium 3.9 mEq/L mEq/L (3.5-5.2) Chloride 106 mEq/L mEq/L (97-110) Carbon Dioxide 16 mEq/l L mEq/l (22-31) Anion Gap 20 mEq/L H mEq/L (8-16) BUN 13 mg/dL mg/dL (7-23) Creatinine 0.8 mg/dL mg/dL (0.6-1.0) Estimated GFR > 60 Glucose 149 mg/dL H mg/dL (70-100) Calcium 9.7 mg/dL mg/dL (8.5-10.4) Lipase 69 IU/L IU/L (23-300) Beta HCG, Qual NEGATIVE Medications Given: Discontinued Medications Diphenhydramine HCl (Benadryl Injection) 25 mg IVP EDNOW ONE Stop: 06/14/17 14:26 Last Admin: 06/14/17 14:51 Dose: 25 mg Sodium Chloride (Ns) 1,000 mls @ 0 mls/hr IV EDNOW ONE; Wide Open PRN Reason: Protocol Stop: 06/14/17 14:26 Last Admin: 06/14/17 14:51 Dose: 1,000 mls Metoclopramide HCl (Reglan Injection) 10 mg IVP EDNOW ONE Stop: 06/14/17 14:26 Last Admin: 06/14/17 14:51 Dose: 10 mg Ondansetron HCl (Zofran) 4 mg IVP EDNOW ONE Stop: 06/14/17 14:26 Last Admin: 06/14/17 14:51 Dose: 4 mg Departure - Departure Clinical Impression: Anxiety Abdominal pain Qualifiers: Abdominal location: lower abdomen, unspecified Qualified Code(s): R10.30 - Lower abdominal pain, unspecified Cyclic vomiting syndrome Qualifiers: Vomiting Intractability: non-intractable Nausea presence: with nausea Qualified Code(s): G43.A0 - Cyclical vomiting, not intractable Condition: Good Instructions: Acute Nausea and Vomiting (ED) Additional Instructions: Frequent, small sips fluids. Gradual diet advancement. Phenergan as needed for nausea and vomiting. Return for worsening symptoms. Ativan for anxiety. I follow up with your regular physician for refill of your Klonopin prescription Referrals: ROSANA DYKES,. [Primary Care Provider] - 2-3 days, call for appt. Prescriptions: LORazepam [Ativan] 1 mg PO Q6-8PRN PRN #10 tab PRN Reason: Anxiety Promethazine HCl [Phenergan 25mg (*)] 25 mg PO Q6-8PRN PRN #10 tab PRN Reason: Nausea/Vomiting, Use 1st
[2017-06-14 14:24] VITALS: TEMP 98.6
[2017-06-14] MEDS ORDERED: NS 1,000 ML IV ONE ×2 (14:25)
[2017-06-14] MEDS ORDERED: ONDANSETRON 4 MG/2 ML VIAL IVP ONE (14:25)
[2017-06-14] MEDS ORDERED: METOCLOPRAMIDE 10 MG/2 ML VIAL IVP ONE (14:25)
[2017-06-14 14:40] LABS: PLATELET COUNT 242 10^3/uL (150-400)
[2017-06-14] MEDS ORDERED: LORazepam 2 MG/ML INJ IVP ONE ×2 (15:11→16:07)
[2017-06-14 16:16] VITALS: PULSE 74; RESP 22; O2SAT 98
[2017-06-14 16:18] VITALS: BP 132/90
== END 2017-06-14 16:19 | disposition home or self-care (01) ==
LOC: CED 14:04
DX: G43.A0 Cyclical vomiting, in migraine, not intractable (principal); R10.30 Lower abdominal pain, unspecified; F41.9 Anxiety disorder, unspecified; E86.9 Volume depletion, unspecified; Z87.891 Personal history of nicotine dependence
CPT/HCPCS: 80048-PO; 83690-PO; 84703-PO; 85025-PO; 96374; J1200; J2060; J2405; J2765

== ENCOUNTER 2017-08-03 10:18 | Emergency (ER) | payer SELFPAY ==
[2017-08-03] MEDS ORDERED: METOCLOPRAMIDE 10 MG/2 ML VIAL IVP ONE (10:26)
[2017-08-03] MEDS ORDERED: ONDANSETRON 4 MG/2 ML VIAL IVP ONE (10:26)
[2017-08-03] MEDS ORDERED: NS 1,000 ML IV ONE (10:26)
[2017-08-03 10:31] VITALS: TEMP 97.2; O2SAT 100
[2017-08-03] MEDS ORDERED: LORazepam 2 MG/ML INJ IVP ONE (11:03)
--- NOTE | 2017-08-03 11:46 | EDPHY ---
H & P Stated Complaint: 6 hours vomiting, diarrhea Time Seen by Provider: 08/03/17 10:25 HPI/ROS: CHIEF COMPLAINT: Vomiting HISTORY OF PRESENT ILLNESS: This is a 32-year-old female with a history of cyclic hyperemesis and anxiety. She presents after experiencing 6 hr of vomiting. She has been seen almost monthly with a similar complaint. In the past there has been concern about benzodiazepine abuse. She tells me that she ran out of her Klonopin prescription sometime last week. Her medication is prescribed by Dr. Jackie Muro. Abdominal pain is diffuse and crampy. She has not had fever or diarrhea. She feels anxious. All of this is consistent with previous episodes. REVIEW OF SYSTEMS: A ten point review of systems was performed and is negative with the exception of the items mentioned in the HPI. Past medical history: 1. Anxiety 2. Cyclic vomiting Social history: She lives alone. She denies use of tobacco, alcohol, or marijuana. General Appearance: Alert. Vital signs reviewed. Blood pressure 127/106. Eyes: Pupils equal and round, no conjunctival injection, no discharge. Anicteric. ENT, Mouth: Mucous membranes are moist, no oropharyngeal erythema or edema. Neck: No lymphadenopathy, supple. Respiratory: Lungs are clear to auscultation; no wheezes, rales, or rhonchi. Cardiovascular: Regular rate and rhythm; no murmur, rub, or gallop. Gastrointestinal: Abdomen is soft and minimally diffusely tender without guarding, no masses or organomegaly, bowel sounds normal. Skin: Warm and dry, no rashes on exposed skin, normal color. Back: Nontender to palpation over the thoracolumbar spine. No CVAT. Extremities: Mild carpopedal spasm Neurological: Alert and oriented. Moving all four extremities easily and equally. Psychiatric: Anxious affect. - Medical/Surgical History Hx Asthma: No Hx Chronic Respiratory Disease: No Hx Diabetes: No Hx Cardiac Disease: No Hx Renal Disease: No Hx Cirrhosis: No Hx Alcoholism: No Hx HIV/AIDS: No Hx Splenectomy or Spleen Trauma: No Other PMH: PSHx: appy. PMHx: anxiety, stomach ulcers, irritable bowel syndrome. with 1 tab,cyclic vomiting,marijuana use - Social History Smoking Status: Former smoker Constitutional: Initial Vital Signs Temperature (C) 36.2 C 08/03/17 10:24 Heart Rate 84 08/03/17 10:24 Respiratory Rate 20 08/03/17 10:24 Blood Pressure 127/106 H 08/03/17 10:24 O2 Sat (%) 100 08/03/17 10:24 O2 Delivery Mode Room Air Allergies/Adverse Reactions: haloperidol [From Haldol] Allergy (Verified 08/03/17 10:28) agitation Home Medications: Medication Instructions Recorded Klonopin 08/03/17 clonazePAM [klonoPIN (*)] 1 mg PO DAILY PRN #3 tab 08/03/17 Medical Decision Making ED Course/Re-evaluation: I reviewed her past visits. I tried the medications that she received at her last visit--Reglan, Benadryl, Zofran, and 1 L IV fluids. With these medications she had minimal relief and continued with some retching and spitting into a cup. She was then given Ativan 1 mg IV. Pharmacy search revealed that she last received a prescription for Klonopin, dispense 20, on 06/14/2017. This was verified by her primary care clinic. After the administration of Ativan she felt significantly better. She was no longer hyperventilating. She had no vomiting. Abdomen is soft and nontender. I do not suspect infection such as appendicitis, nor do I suspect cholecystitis or pancreatitis. She feels well enough to return home. She understands that she cannot continue to receive benzodiazepines from the emergency department, but I did give her a prescription for Klonopin 1 mg, dispense 3 tablets. She will follow up with her primary care physician for another prescription. Based upon my investigation, she has not taken more than 20 Klonopin in a 6 week time period. Differential Diagnosis: I considered a differential diagnosis that includes but is not limited to cyclic vomiting, drug-seeking behavior, gastritis, pancreatitis, gastroenteritis , appendicitis, cholecystitis. - Data Points Medications Given: Discontinued Medications Diphenhydramine HCl (Benadryl Injection) 25 mg IVP EDNOW ONE Stop: 08/03/17 10:28 Last Admin: 08/03/17 10:39 Dose: 25 mg Sodium Chloride (Ns) 1,000 mls @ 0 mls/hr IV EDNOW ONE; Wide Open PRN Reason: Protocol Stop: 08/03/17 10:27 Last Admin: 08/03/17 10:38 Dose: 1,000 mls Lorazepam (Ativan Injection) 1 mg IVP EDNOW ONE Stop: 08/03/17 11:04 Last Admin: 08/03/17 11:20 Dose: 1 mg Metoclopramide HCl (Reglan Injection) 10 mg IVP EDNOW ONE Stop: 08/03/17 10:27 Last Admin: 08/03/17 10:39 Dose: 10 mg Ondansetron HCl (Zofran) 4 mg IVP EDNOW ONE Stop: 08/03/17 10:27 Last Admin: 08/03/17 10:38 Dose: 4 mg Departure - Departure Disposition: Home, Routine, Self-Care Clinical Impression: Anxiety Cyclic vomiting syndrome Qualifiers: Vomiting Intractability: non-intractable Nausea presence: with nausea Qualified Code(s): G43.A0 - Cyclical vomiting, not intractable Condition: Good Instructions: Anxiety (ED), Cyclic Vomiting Syndrome (ED) Additional Instructions: You should call Dr. Muro today and arrange an appointment so that you can get a refill on her Klonopin. You will not be able to get another refill from the emergency department. Referrals: Jackie Muro [Primary Care Provider] - As per Instructions Prescriptions: clonazePAM [klonoPIN (*)] 1 mg PO DAILY PRN #3 tab PRN Reason: Anxiety
[2017-08-03 12:19] VITALS: BP 129/81; PULSE 96; RESP 18
== END 2017-08-03 11:59 | disposition home or self-care (01) ==
LOC: CED 10:18
DX: G43.A0 Cyclical vomiting, in migraine, not intractable (principal); F41.9 Anxiety disorder, unspecified; E86.9 Volume depletion, unspecified; Z87.891 Personal history of nicotine dependence
CPT/HCPCS: 96374; J1200; J2060; J2405; J2765